=== PATIENT | female | born 1950 | race Caucasian/White ===

== ENCOUNTER 2016-12-09 15:31 | Outpatient (CLI) | payer MEDICARE, OTHER | END 2016-12-09 15:32 | disposition home or self-care (01) | DX: M54.5 Low back pain (principal); M51.36 Other intervertebral disc degeneration, lumbar region ==

== ENCOUNTER 2017-03-17 14:48 | Outpatient (CLI) | payer MEDICARE, OTHER ==
--- NOTE | 2017-03-21 18:40 | Mammography Report ---
DIGITAL SCREENING MAMMOGRAM: 03/17/2017 CLINICAL INDICATION: A 66-year-old for screening. COMPARISON: 05/2015, 10/2012, 04/2011, 03/2008, 03/2007. TECHNIQUE: Routine CC and MLO projections were obtained of the breasts. FINDINGS: The breasts again demonstrate heterogeneously dense fibroglandular parenchyma bilaterally. Coarse and punctate, typically benign calcifications are present. No suspicious masses, clustered microcalcifications, or regions of architectural distortion are identified. IMPRESSION: BENIGN FINDINGS. RECOMMENDATION: Routine annual screening unless otherwise clinically indicated. BI-RADS category 2, benign findings. STANDARD QUALIFYING STATEMENTS 1. This examination was reviewed with the aid of Computer-Aided Detection (CAD). 2. A negative or benign imaging report should not delay biopsy if clinically suspicious findings are present. Consider surgical consultation if warranted. More than 5% of cancers are not identified by i maging. 3. Dense breasts may obscure an underlying neoplasm. JOB #: [id number] EXT JOB #:[id number]
== END 2017-03-17 14:49 | disposition home or self-care (01) ==
LOC: DI.S 14:48
PROVIDERS: ATTEND Physician Assistant
DX: Z12.31 Encounter for screening mammogram for malignant neoplasm of breast (principal)
CPT/HCPCS: 77067

== ENCOUNTER 2017-09-05 19:34 | Outpatient (CLI) | payer MEDICARE, OTHER ==
--- NOTE | 2017-09-05 22:12 | Ultrasound Report ---
EXAM: BILATERAL LOWER EXTREMITY VENOUS ULTRASOUND EXAM DATE: 09/05/2017 09:44 PM. CLINICAL HISTORY: Varicose veins, pain in calf, superficial thrombophlebitis. COMPARISON: 10/11/2014. TECHNIQUE: Real-time sonographic vascular imaging was performed by the insurance representative through the lower extremities utilizing both color-flow and Doppler spectral analysis. Multiple installation service representative static i mages were saved for review. FINDINGS: Right: Common Femoral Vein (CFV): Normal. CFV-GSV Junction: Normal. Profunda Femoral Vein (PFV): Normal. Femoral Vein (FV) Prox: Normal. Femoral Vein (FV) Mid: Normal. Femoral Vein (FV) Dist: Normal. Popliteal Vein: Normal. Posterior Tibial Veins: Normal. Peroneal Veins: Normal. Left: Common Femoral Vein (CFV): Normal. CFV-GSV Junction: Normal. Profunda Femoral Vein (PFV): Normal. Femoral Vein (FV) Prox: Normal. Femoral Vein (FV) Mid: Normal. Femoral Vein (FV) Dist: Normal. Popliteal Vein: Normal. Posterior Tibial Veins: Normal. Peroneal Veins: Normal. Other: Anterior right knee fluid pocket measures approximately 5 x 1 x 3 cm and may be a joint effusi on. IMPRESSION: 1. No deep venous thrombosis seen in either leg. 2. Right knee possible joint effusion. [facility] Referring Provider Line: [phone] SITE ID: [id number]
== END 2017-09-05 19:35 | disposition home or self-care (01) ==
LOC: DI 19:34
PROVIDERS: ATTEND Physician Assistant
DX: I83.90 Asymptomatic varicose veins of unspecified lower extremity (principal); I80.9 Phlebitis and thrombophlebitis of unspecified site
CPT/HCPCS: 93970

== ENCOUNTER 2018-04-04 10:38 | Outpatient (CLI) | payer MEDICARE, OTHER ==
--- NOTE | 2018-04-06 15:14 | Mammography Report ---
Procedure Date: 04/04/2018 Accession Number: [id number] / [id number] Procedure: MGS - Screening Mammo Dig Bilat CPT Code: FULL RESULT: EXAM: Screening Mammo Dig Bilat DATE: 04/04/2018 10:53 AM CLINICAL HISTORY: 67-year-old for screening TECHNIQUE: Bilateral CC and MLO views were obtained. COMPARISON: 03/17/2017, 06/18/2015, 06/08/2015, 10/30/2012, 05/03/2011 FINDINGS: The breasts demonstrate scattered fibroglandular densities bilaterally. Coarse and punctate, typically benign calcifications are present. No suspicious masses, clustered microcalcifications, or regions of architectural distortion are identified. IMPRESSION: Benign findings RECOMMENDATION: Routine annual screening unless otherwise clinically indicated. BIRADS CATEGORY 2: Benign findings STANDARD QUALIFYING STATEMENTS: 1. This examination was reviewed with the aid of Computer-Aided Detection (CAD). 2. A negative or benign imaging report should not delay biopsy if clinically suspicious findings are present. Consider surgical consultation if warrented. More than 5% of cancers are not identified by imaging. 3. Dense breasts may obscure an underlying neoplasm.
== END 2018-04-04 10:39 | disposition home or self-care (01) ==
LOC: DI.S 10:38
PROVIDERS: ATTEND Physician Assistant
DX: Z12.31 Encounter for screening mammogram for malignant neoplasm of breast (principal)
CPT/HCPCS: 77067

== ENCOUNTER 2020-11-24 14:12 | Outpatient (CLI) | payer MEDICARE, OTHER ==
--- NOTE | 2020-11-25 14:35 | Mammography Report ---
BILATERAL DIGITAL SCREENING MAMMOGRAM 3D/2D: 11/24/2020 CLINICAL: Routine screening. Comparison is made to exams dated: 04/04/2018 mammogram, 03/17/2017 mammogram, 06/18/2015 mammogram, an d 10/30/2012 mammogram - [facility]. There are scattered fibroglandular elements in both breasts. There are benign vascular calcifications in both breasts. No significant masses, calcifications, or other findings are seen in either breast. There has been no significant interval change. IMPRESSION: BENIGN There is no mammographic evidence of malignancy. A 1 year screening mammogram is recommended. This exam was interpreted at Station ID: [id number]. NOTE: For mammograms, a report in lay terms will be sent to the patient. Approximately 15% of breast malignancies will not be visualized mammographically. In the management of a palpable breast mass, a negative mammogram must not discourage biopsy of a clinically suspicious lesion. Electronically Signed By: Hilton Thomas M.D. ddp/penrad:11/24/2020 16:52:25 ACR BI-RADS Category 2: Benign Finding(s) 3342F PARENCHYMAL PATTERN: (A) - The breast(s) demonstrate(s) scattered fibroglandular densities. BI-RADS CATEGORY: (2) - 2 RECOMMENDATION: (ANNUAL) - Recommend routine annual screening mammography. [id number] 1 year screening LATERALITY: (B)
== END 2020-11-24 14:13 | disposition home or self-care (01) ==
LOC: DI.S 14:12
DX: Z12.31 Encounter for screening mammogram for malignant neoplasm of breast (principal)

== ENCOUNTER 2021-06-03 11:18 | Outpatient (CLI) | payer MEDICARE, OTHER ==
--- NOTE | 2021-06-03 11:46 | XRAY Report ---
PROCEDURE: Hip w/Pelvis 1V RT INDICATIONS: Chronic right hip pain TECHNIQUE: AP pelvis with lateral view(s) of the right hip(s). COMPARISON: None FINDINGS: Left total hip arthroplasty. Moderate to severe osteoarthritis of the right hip characterized by joint space narrowing, subchondra l sclerosis and cystic change, and prominent marginal osteophytes. Mild lower lumbar spine degenerative changes. Sacroiliac joint spaces are maintained. Tubal ligation clips and pelvic phleboliths noted. No significant soft tissue abnormality otherwise. IMPRESSION: Moderate to severe right hip osteoarthritis. Reviewed by: Anatoly Rockwell MD on 06/03/2021 11:44 AM PDT Approved by: Anatoly Rockwell MD on 06/03/2021 11:44 AM PDT Station ID: [id number]
== END 2021-06-03 23:59 | disposition home or self-care (01) ==
LOC: DI.S 11:18
PROVIDERS: ATTEND Physician Assistant Medical
DX: M25.551 Pain in right hip (principal); G89.29 Other chronic pain; M16.11 Unilateral primary osteoarthritis, right hip

== ENCOUNTER 2021-07-05 08:14 | Outpatient (CLI) | payer MEDICARE, OTHER ==
[2021-07-05 14:17] LABS: BASOPHILS # (AUTO) 0.1 10^3/uL (0.0-0.1); BASOPHILS % (AUTO) 0.8 %; EOSINOPHILS # (AUTO) 0.2 10^3/uL (0.0-0.7); EOSINOPHILS % (AUTO) 3.2 %; HGB - HEMOGLOBIN 10.6 g/dL (12.0-16.0); LYMPHOCYTES % (AUTO) 14.5 %; MEAN CORPUSCULAR HEMOGLOBIN 25.1 pg (27.0-31.0); MEAN CORPUSCULAR HGB CONC 30.3 g/dL (32.0-36.0); MEAN CORPUSCULAR VOLUME 82.9 fL (81.0-99.0); MEAN PLATELET VOLUME 10.7 fL (7.9-10.8); MONOCYTES # (AUTO) 0.5 10^3/uL (0.0-1.0); MONOCYTES % (AUTO) 7.9 %; NEUTROPHILS # (AUTO) 4.8 10^3/uL (1.5-6.6); NEUTROPHILS % (AUTO) 73.4 %; PLT - PLATELET COUNT 285 10^3/uL (130-450); RED BLOOD COUNT 4.22 10^6/uL (4.20-5.40); RED CELL DISTRIBUTION WIDTH 15.6 % (12.0-15.0); WHITE BLOOD COUNT 6.6 x10^3/uL (4.8-10.8)
[2021-07-05 14:36] LABS: ALBUMIN 4.1 g/dL (3.2-5.5); ALBUMIN/GLOBULIN RATIO 1.2 (1.0-2.2); ALKALINE PHOSPHATASE 88 IU/L (42-121); ALT ALANINE AMINOTRANSFERASE 14 IU/L (10-60); AST ASPARTATE AMINOTRANSFERASE 21 IU/L (10-42); BILIRUBIN,TOTAL 0.8 mg/dL (0.2-1.0); BUN - BLOOD UREA NITROGEN 15 mg/dL (6-20); CALCIUM 9.3 mg/dL (8.5-10.3); CARBON DIOXIDE - CO2 27 mmol/L (21-32); CHLORIDE 107 mmol/L (101-111); CHOL/HDL RATIO 2.9 (<4.4); CHOLESTEROL 237 mg/dL; CREATININE 0.7 mg/dL (0.4-1.0); GFR - MDRD 82 (>89); GLUCOSE 91 mg/dL (70-100); HDL CHOLESTEROL 82 mg/dL; LDL CHOLESTEROL,CALCULATED 142 mg/dL; LDL/HDL RATIO 1.7 (<4.4); POTASSIUM 3.9 mmol/L (3.5-5.0); SODIUM 143 mmol/L (135-145); TOTAL PROTEIN 7.5 g/dL (6.7-8.2); TRIGLYCERIDES 66 mg/dL; VLDL CHOLESTEROL 13 mg/dL
[2021-07-05 14:42] LABS: THYROID STIMULATING HORMONE 2.18 uIU/mL (0.34-5.60)
== END 2021-07-05 08:15 | disposition home or self-care (01) ==
LOC: LAB.S 08:14
PROVIDERS: ATTEND Registered Nurse
DX: K21.9 Gastro-esophageal reflux disease without esophagitis (principal); M85.80 Other specified disorders of bone density and structure, unspecified site; K51.90 Ulcerative colitis, unspecified, without complications; E66.3 Overweight; I10 Essential (primary) hypertension
CPT/HCPCS: 36415; 80053; 80061; 83721; 84443; 85025

== ENCOUNTER 2021-07-15 11:00 | Outpatient (CLI) | payer MEDICARE, OTHER ==
--- NOTE | 2021-07-15 12:41 | XRAY Report ---
PROCEDURE: Hip w/Pelvis 2-3V RT INDICATIONS: RIGHT HIP ARTHRITIS TECHNIQUE: AP pelvis with lateral view(s) of the bilateral hip(s). COMPARISON: None. FINDINGS: Bones: No fractures or dislocations. Pelvic ring appears intact. No suspicious bony lesions. Left hip arthroplasty is present. No evidence of hardware fracture or periprosthetic lucency to suggest l oosening. Mild to moderate degenerative joint space narrowing is present on the right. Degenerative c hanges are present within the lower lumbar spine. Soft tissues: The visualized bowel gas pattern is normal. No suspicious soft tissue calcifications. IMPRESSION: Mild to moderate right hip arthritic change. Reviewed by: Geneva Zelaya MD on 07/15/2021 12:39 PM PDT Approved by: Geneva Zelaya MD on 07/15/2021 12:39 PM PDT Station ID: [id number]
== END 2021-07-15 23:59 | disposition home or self-care (01) ==
LOC: DI.N 11:00
PROVIDERS: ATTEND Orthopaedic Surgery
DX: M16.11 Unilateral primary osteoarthritis, right hip (principal)

== ENCOUNTER 2021-08-09 10:46 | Outpatient (CLI) | payer MEDICARE, OTHER ==
[2021-08-09 14:20] LABS: ABSOLUTE RETICS # AUTO 0.079 10^6/uL (0.020-0.110); BASOPHILS # (AUTO) 0.1 10^3/uL (0.0-0.1); BASOPHILS % (AUTO) 1.4 %; EOSINOPHILS # (AUTO) 0.2 10^3/uL (0.0-0.7); EOSINOPHILS % (AUTO) 3.7 %; HGB - HEMOGLOBIN 12.3 g/dL (12.0-16.0); LYMPHOCYTES % (AUTO) 17.2 %; MEAN CORPUSCULAR HEMOGLOBIN 26.2 pg (27.0-31.0); MEAN CORPUSCULAR HGB CONC 30.8 g/dL (32.0-36.0); MEAN CORPUSCULAR VOLUME 85.1 fL (81.0-99.0); MONOCYTES # (AUTO) 0.5 10^3/uL (0.0-1.0); MONOCYTES % (AUTO) 9.5 %; NEUTROPHILS # (AUTO) 3.9 10^3/uL (1.5-6.6); PLT - PLATELET COUNT 266 10^3/uL (130-450); RED CELL DISTRIBUTION WIDTH 21.2 % (12.0-15.0); RETICULOCYTE COUNT % (AUTO) 1.68 % (0.5-2.3); WHITE BLOOD COUNT 5.7 x10^3/uL (4.8-10.8)
[2021-08-09 15:03] LABS: % IRON SATURATION 21 % (20-50); IRON 95 ug/dL (28-170); TOTAL IRON BINDING CAPACITY 448 ug/dL (250-450); TRANSFERRIN 320 mg/dL (192-382)
[2021-08-09 15:10] LABS: FERRITIN 17.4 ng/mL (11.0-306.8)
[2021-08-09 15:59] LABS: FOLATE > 49.60 ng/mL (5.90 - >24.8)
== END 2021-08-09 10:47 | disposition home or self-care (01) ==
LOC: LAB.S 10:46
PROVIDERS: ATTEND Registered Nurse
DX: D64.9 Anemia, unspecified (principal)
CPT/HCPCS: 36415; 81599; 82607; 82728; 82746; 83020; 83540; 84466; 85014; 85018; 85025; 85041; 85045

== ENCOUNTER 2021-08-25 10:36 | Day surgery (SDC) | payer MEDICARE, OTHER ==
[~2021-08-25 10:36] MED LIST: ACETAMINOPHEN 500 MG TABLET PO ONE; CEFAZOLIN SODIUM IN 0.9 % NACL 2 GM/100 ML BAG IV ONE; DEXAMETHASONE 10 MG/ML VIAL ONE
[2021-08-25] MEDS ORDERED: ONDANSETRON 4 MG/2 ML VIAL IVP PRN ×2 (10:59→11:25)
[2021-08-25] MEDS ORDERED: SODIUM CHLORIDE FLUSH 0.9% 10 ML SYRINGE IVP PRN (10:59)
[2021-08-25] MEDS ORDERED: DOCUSATE SODIUM 100 MG CAPSULE PO PRN (10:59)
[2021-08-25] MEDS ORDERED: BUPIVACAINE 0.25% PF 30 ML VIAL ONE (11:12)
[2021-08-25] MEDS ORDERED: LACTATED RINGERS 1,000 ML IV ONE ×2 (11:17→15:07)
--- NOTE | 2021-08-25 11:22 | ANESTHESIA ---
Pre-Anesthesia VS, & Labs - Diagnosis right hip arthritis - Procedure right hip arthroplasty Vital Signs: Temp Pulse Resp BP Pulse Ox 36.3 C L 76 16 180/105 H 99 08/25/21 10:48 08/25/21 10:48 08/25/21 10:48 08/25/21 10:48 08/25/21 10:48 Height: 5 ft 5 in Weight (kg): 97.1 kg Body Mass Index: 35.6 BMI Classification: Obese - NPO >8 hours - Is Patient ?: No Home Medications and Allergies Home Medications: Ambulatory Orders Cholecalciferol [Vitamin D3] 25 mcg PO DAILY 08/17/21 Ferrous Sulfate 325 mg PO DAILY 08/17/21 Active Medications Acetaminophen (Acetaminophen 500 Mg Tablet) 1,000 mg PO Q6HR ZORAIDA Alcohol (Ethyl Alcohol 62% Swab Ampule) 1 amp CRISTINA BID ZORAIDA Aspirin (Aspirin Ec 81 Mg Tablet) 81 mg PO BID ZORAIDA Celecoxib (Celecoxib 100 Mg Capsule) 200 mg PO BID ZORAIDA Docusate Sodium (Docusate Sodium 100 Mg Capsule) 100 mg PO BID PRN PRN Reason: Constipation Cefazolin Sodium 2 gm/ Sodium (Chloride) 100 mls @ 200 mls/hr IV Q8HR ZORAIDA Stop: 08/25/21 22:29 Potassium Chloride/Sodium Chloride (Normal Saline 0.9% W/20 Meq Kcl) 1,000 mls @ 100 mls/hr IV .Q10H ZORAIDA Morphine Sulfate (Morphine 2 Mg/Ml Carpuject) 2 mg IVP Q2HR PRN PRN Reason: PAIN Ondansetron HCl (Ondansetron 4 Mg/2 Ml Vial) 4 mg IVP Q6HR PRN PRN Reason: Nausea / Vomiting Oxycodone HCl (Oxycodone 5 Mg Tablet) 5 mg PO Q6HR PRN PRN Reason: PAIN Sodium Chloride (Sodium Chloride Flush 0.9% 10 Ml Syringe) 10 ml IVP PRN PRN PRN Reason: NEEDED PER PROVIDER ORDERS Sodium Chloride (Sodium Chloride Flush 0.9% 10 Ml Syringe) 10 ml IVP 0100,0900,1700 [facility] Lisinopril 20 mg PO DAILY 10/03/14 Multivitamin [Multivitamins] 1 each PO DAILY 10/03/14 Cholecalciferol [Vitamin D3] 25 mcg PO DAILY 08/17/21 Ferrous Sulfate 325 mg PO DAILY 08/17/21 Allergies/Adverse Reactions: Allergies Allergy/AdvReac Type Severity Reaction Status Date / Time No Known Drug Allergies Allergy Verified 08/17/21 15:14 Anes History & Medical History - Anesthetic History Anesthesia Complications: reports: No previous complications - Medical History Cardiovascular: reports: Hypertension Pulmonary: reports: None Gastrointestinal: reports: GERD Urinary: reports: None Musculoskeletal: reports: Osteoarthritis Endocrine/Autoimmune: reports: None Skin: reports: None Smoking Status: Never smoker - Surgical History General: reports: Cholecystectomy, Appendectomy, Colonoscopy Gynecologic: reports: section, Tubal ligation Orthopedic: reports: Hip replacement, Spine surgery, Other Exam General: Alert, Oriented x3 Mouth Opening: Greater than 4 Fingerbreadths Neck Mobility: Normal Mallampati classification: II Thyromental Distance: greater than 6 cm Cardiovascular: Regular rate Plan Anesthesia Type: Spinal, Fascia Iliaca Block Consent for Procedure(s) Verified and Reviewed: Yes Code Status: Attempt Resuscitation ASA classification: 2-Mild systemic disease Is this case an emergency?: No
[2021-08-25] MEDS ORDERED: METOCLOPRAMIDE 10 MG/2 ML VIAL IVP PRN (11:25)
[2021-08-25] MEDS ORDERED: MORPHINE 2 MG/ML CARPUJECT IVP PRN (11:25)
[2021-08-25] MEDS ORDERED: fentaNYL 100 MCG/2 ML VIAL IVP PRN (11:25)
[2021-08-25] MEDS ORDERED: ATROPINE ABBOJECT 1 MG/10 ML SYRINGE IVP PRN (11:25)
[2021-08-25] MEDS ORDERED: HYDROmorphone 0.5 MG/0.5 ML SYRINGE IVP PRN (11:25)
[2021-08-25] MEDS ORDERED: NALOXONE 0.4 MG/ML VIAL IVP PRN (11:25)
[2021-08-25] MEDS ORDERED: ePHEDrine 50 MG/ML VIAL IVP PRN (11:25)
[2021-08-25] MEDS ORDERED: PROPOFOL 500 MG/50 ML 500 MG/50 ML VIAL ONE ×3 (11:33→13:26)
[2021-08-25] MEDS ORDERED: LIDOCAINE-MPF 2% 5 ML VIAL ONE (11:33)
[2021-08-25] MEDS ORDERED: MIDAZOLAM 2 MG/2 ML VIAL ONE (11:34)
[2021-08-25] MEDS ORDERED: BUPIVACAINE 0.5% PF 10 ML VIAL ONE (11:35)
[2021-08-25] MEDS ORDERED: LACTATED RINGERS 1,000 ML IV SCH (12:00)
[2021-08-25] MEDS ORDERED: ePHEDrine 50 MG/ML VIAL IVP ONE (12:12)
[2021-08-25] MEDS ORDERED: TRANEXAMIC ACID 1,000 MG/10 ML VIAL ONE ×2 (12:20→13:54)
[2021-08-25] MEDS ORDERED: VANCOMYCIN 1 GM VIAL MC ONE (13:21)
[2021-08-25] MEDS ORDERED: VANCOMYCIN 1 GM VIAL ONE (13:43)
[2021-08-25] MEDS ORDERED: PROPOFOL 200 MG/20 ML VIAL IVP ONE ×2 (14:15→14:33)
--- NOTE | 2021-08-25 14:28 | OPERATIVE REPORT ---
Operative Report - General Procedure Date: 08/25/21 Planned Procedure: Right total hip replacement Pre-Op Diagnosis: Osteoarthritis right hip Procedure Performed: Right total hip arthroplasty:[employer] #9 anthology standard offset femoral component, 54 mm R3 acetabular component with a single 6.5 mm acetabular screw, dual mobility liner to acetabulum +4 mm dual mobility femoral head, Press-fit components Post Op Diagnosis: Same as preoperative diagnosis - Procedure Note Primary Surgeon: Cal Rodrigues MD Secondary Surgeon: Janusz LONDONO Anesthesia Provider: Desirae Martini CRNA Anesthesia Technique: Regional block, Spinal Estimated Blood Loss (mL): 200 Indications: This is a 70-year-old with a history of bilateral hip osteoarthritis. She had a left total hip arthroplasty several years ago with favorable outcome. She has been treated nonoperatively for osteoarthritis of the right hip but has had progressive pain with activities of daily living and walking. She had decreased and painful motion to right hip, x-ray changes with complete loss of joint space to right hip consistent with advanced osteoarthritis right hip. She has been seen preoperatively by primary care and cardiology. She has had previous back surgery many years ago as well. Findings: She had complete loss of articular cartilage to the femoral head and acetabulum with eburnation of bone surfaces consistent with advanced osteoarthritis of the hip Complications: None - Other Other Information/Narrative: After satisfactory spinal anesthesia had been achieved, the patient was placed in a lateral decubitus position with the right hip facing superiorly. She was secured in the lateral decubitus position using a pegboard with 2 post securing the torso and 2 posts securing the pelvis. The right hip and right lower extremity were prepped and draped in a sterile manner in the usual fashion. A timeout procedure was performed by the entire operating room team and all were in agreement. A longitudinal incision was made about the lateral right hip beginning at the vastus lateralis ridge of the proximal femur and extending it proximally approximately 3 fingerbreadths above the trochanter. The subcutaneous tissue and fascia renata were split in line with the incision. The anterior one third of the gluteus medius was incised at the Trochanteric junction. The gluteus medius was retracted medially. The hip capsule was exposed and was split in a T-shaped fashion. Part of the anterior hip capsule was excised. The femoral head was dislocated Anteriorly with flexion, adduction and external rotation. An osteotomy was done to the femoral neck using a osteotomy guide. Retractors were placed behind the femoral neck to protect the soft tissues from the oscillating saw. The proximal femur was retracted. 2 acetabular retractors were placed one anteriorly directly against bone to reduce any soft tissue impingement to femoral nerve. The second retractor was placed more posteriorly directly against bone and preventing any impingement against sciatic nerve. The acetabulum was prepared with a large curette. Medialization of the acetabulum was performed with a small acetabular reamer and then widening was done up to a 53 mm reamer the final reamers were placed in approximately 20 degrees anteversion and 45 degrees of abduction. A trial acetabular component was inserted, 53 mm and this fit well. A permanent 54 mm R3 acetabular 3-hole component was then impacted in 40 degrees of abduction and approximately 20 degrees of anteversion. This had good fixation to push pull and rotation. A single 25mm superior acetabular screw was inserted. The stability of the acetabular cup was very good. A Dual mobility Oxinium acetabular liner was inse rted into the cup. The femoral canal was opened with a box osteotome, starting reamer and then a short broach. Broaching was carried out to a #9. Calcar reaming was performed. Good fit and stability to the #4 stem was achieved. Trial reduction was performed. Hip motion was very good and the hip was stable to dislocation maneuvers. The trial components were removed. A permanent acetabular liner was impacted into the acetabular cup. The #9 anthology femoral stem was impacted and fully seated. The Dual mobility femoral head was impacted on the femoral trunnion. There was good stability to push pull and rotation. The hip was reduced, had good leg length tension and good stability with dislocation maneuvers. 3-minute lavage with dilute Betadine was performed. The hip abductors were repaired at the Trochanteric junction with Arthrex fiber tack suture with 4 needles. The fascia renata was closed with #1Strata fix. The subcutaneous tissue was closed with 2-0 Strata fixl. The skin was closed with a 3-0 Monocryl subcuticular closure and Dermabond. He tolerated the procedure well. A physician construction assistant was utilized during the procedure to provide retraction and protection of neurovascular structures as well as to facilitate dislocation and reduction of the hip joint.She received 2 g of Ancef intravenously and a gram of tranexamic acid intravenously
[2021-08-25] MEDS ORDERED: SODIUM CHLORIDE 0.9% 10 ML VIAL IVP ONE (14:49)
[2021-08-25] MEDS ORDERED: ROPIVACAINE 0.5% PF 20 ML AMPULE ONE (14:49)
--- NOTE | 2021-08-25 15:35 | XRAY Report ---
PROCEDURE: Pelvis 1 View INDICATIONS: POST UP RIGHT TOTAL HIP TECHNIQUE: AP view(s) of the pelvis acquired. COMPARISON: July 15, 2021. FINDINGS: The patient is rotated. BONES/JOINTS: No acute, displaced fracture. Interval placement of a right hip arthroplasty without ev idence of hardware compromise. The pubic symphysis is not well seen. The right sacroiliac joint is patent. The prosthetic femoral he ads are normally seated within the prosthetic acetabuli. SOFT TISSUES: Subcutaneous emphysema about the right hip, compatible with recent intervention. IMPRESSION: 1.Expected post surgical change. Reviewed by: Jameson Jones MD on 08/25/2021 3:34 PM PDT Approved by: Jameson Jones MD on 08/25/2021 3:34 PM PDT Station ID: [id number]
--- NOTE | 2021-08-25 16:34 | CONSULTATION NOTE ---
Referring Provider Name of Referring Provider:: Dr Rodrigues Consult Date: 08/25/21 Chief Complaint - Chief Complaint Chief Complaint: Hip surgery History of Present Illness - Admitted From Admitted From:: PACU - History Obtained From History obtained from: Patient and chart review - History of Present Illness HPI Comment/Other: This is a 70-year-old white female with a history of hypertension on lisinopril and also on vitamin D and iron replacement therapy. She had prior back surgery and left hip replacement which was successful. She also has right hip arthritis and developed significant worsening and was to have elective right hip surgery. She had clearance by her PCP. The orthopedist note says she also had clearance by cardiology but I cannot find this. She presented for elective surgery today and completed right hip surgery and is now in recovery and admitted to her room in the hospital. Patient currently denies any significant sx. She is compliant with her usual medications. History - Past Medical History Cardiovascular: reports: Hypertension Respiratory: reports: None Endocrine/Autoimmune: reports: None GI: reports: GERD : reports: None HEENT: reports: Chronic vision loss, Chronic hearing loss Psych: reports: None Musculoskeletal: reports: Osteoarthritis Derm: reports: None MRSA Hx?: No - Past Surgical History General: reports: Cholecystectomy, Appendectomy, Colonoscopy Ortho: reports: Hip replacement, Spine surgery, Other /RESIDENT ASSOCIATE: reports: section, Tubal ligation - Family & Social History Living arrangement: At home - Substance History Use: Uses substance without health or social issues: NONE Meds/Allgy - Home Medications Home Medications: Ambulatory Orders Medication Instructions Recorded Confirmed Lisinopril 20 mg PO DAILY 10/03/14 08/25/21 Multivitamin [Multivitamins] 1 each PO DAILY 10/03/14 08/25/21 Cholecalciferol [Vitamin D3] 25 mcg PO DAILY 08/17/21 08/25/21 Ferrous Sulfate 325 mg PO DAILY 08/17/21 08/25/21 - Allergies Allergies/Adverse Reactions: Allergies Allergy/AdvReac Type Severity Reaction Status Date / Time No Known Drug Allergies Allergy Verified 08/17/21 15:14 Review of Systems - All Other Systems All Other Systems: reports: Reviewed and negative Exam - Vital Signs Vital Signs: Vital Signs x48h Temp Pulse Pulse Resp BP BP Pulse Ox 08/25/21 16:14 20 142/69 H 100 08/25/21 15:59 72 20 148/69 H 100 08/25/21 15:30 36.1 C L 66 13 127/79 100 08/25/21 15:20 36.1 C L 62 12 127/86 H 100 08/25/21 15:10 36.1 C L 62 11 L 121/95 H 98 08/25/21 15:05 36.0 C L 61 16 120/60 99 08/25/21 15:00 36.0 C L 65 16 111/58 L 99 08/25/21 14:55 36.0 C L 65 16 119/67 100 08/25/21 11:00 35.5 C L 68 20 142/69 H 100 08/25/21 10:48 36.3 C L 76 16 180/105 H 99 Conclusion/Plan - Problem List (1) HTN (hypertension) Conclusion/Plan: Continue with her usual lisinopril dose while here. Parameters for when to not give lisinopril are ordered. Her diet should be a low-sodium diet (2) Status post hip replacement Conclusion/Plan: Plan for PT to see this patient in discharge tomorrow with pain medication and DVT prophylaxis as per the orthopedic surgeon. Thank you for the allowing the Hospitalist team to participate in the care of this patient. Qualifiers: Laterality: right Qualified Code(s): Z96.641 - Presence of right artificial hip joint
[2021-08-25] MEDS: NS W/20 MEQ KCL 1,000 ML IV SCH (16:39)
[2021-08-25] MEDS: ACETAMINOPHEN 500 MG TABLET PO SCH ×2 (16:58→23:11)
[2021-08-25] MEDS: MORPHINE 2 MG/ML CARPUJECT IVP PRN ×2 (16:58→20:05)
[2021-08-25] MEDS: SODIUM CHLORIDE FLUSH 0.9% 10 ML SYRINGE IVP SCH ×2 (16:59→22:52)
--- NOTE | 2021-08-25 18:08 | ANESTHESIA POST OP EVALUATION ---
Anesthesia Post Eval - Post Anesthesia Eval Vitals: Last Vital Signs Temp 34.8 C L 08/25/21 16:29 Pulse 76 08/25/21 16:44 Resp 16 08/25/21 16:44 BP 145/75 H 08/25/21 16:44 Pulse Ox 100 08/25/21 16:44 CV Function Including HR & BP: Stable Pain Control: Satisfactory Nausea & Vomiting: Negative Mental Status: Baseline Respiratory Status: Airway Patent Hydration Status: Satisfactory Anesthesia Complications: None
[2021-08-25] MEDS: oxyCODONE 5 MG TABLET PO PRN (18:36)
[2021-08-25] MEDS: ASPIRIN EC 81 MG TABLET PO SCH (20:05)
[2021-08-25] MEDS: CELECOXIB 100 MG CAPSULE PO SCH (20:05)
[2021-08-25] MEDS: ceFAZolin 2 GM in SODIUM CHLORIDE 0.9% 100ML 100 ML IV SCH (20:05)
[2021-08-25] MEDS: ethyl alcohoL 62% SWAB AMPULE NAS SCH (20:07)
[2021-08-26] MEDS: NS W/20 MEQ KCL 1,000 ML IV SCH (02:15)
[2021-08-26] MEDS: oxyCODONE 5 MG TABLET PO PRN ×2 (02:15→08:21)
[2021-08-26] MEDS: ceFAZolin 2 GM in SODIUM CHLORIDE 0.9% 100ML 100 ML IV SCH (03:45)
[2021-08-26] MEDS: ACETAMINOPHEN 500 MG TABLET PO SCH ×2 (05:42→11:11)
[2021-08-26] MEDS ORDERED: MULTIVITAMIN TABLET PO SCH (08:00)
[2021-08-26] MEDS: ethyl alcohoL 62% SWAB AMPULE NAS SCH (08:20)
[2021-08-26] MEDS: ASPIRIN EC 81 MG TABLET PO SCH (08:21)
[2021-08-26] MEDS: CELECOXIB 100 MG CAPSULE PO SCH (08:21)
[2021-08-26] MEDS: SODIUM CHLORIDE FLUSH 0.9% 10 ML SYRINGE IVP SCH (08:22)
[2021-08-26] MEDS ORDERED: NS W/20 MEQ KCL 1,000 ML IV SCH (08:26)
--- NOTE | 2021-08-26 08:46 | PROVIDER PROGRESS NOTE ---
Subjective - General Procedure Date: 08/25/21 Post Op Days: 1 Procedure Performed: Right RUPERTO - Review of Systems Wound/Incisions: positive: Healing well, Dressing dry and intact General: negative: Fever, Weakness Pulmonary: negative: Shortness of breath Cardiovascular: negative: Chest pain Gastrointestinal: negative: Nausea, Vomiting Musculoskeletal: positive: Joint pain All Other Systems: positive: Reviewed and negative - Other Other Information/Narrative: Patient is a 70-year-old female who is postop day 1 a right RUPERTO performed by Dr Cal Rodrigues at [facility] on 08/25/2021. Patient's medical history includes mild chronic anemia, GERD, hypertension on lisinopril helpful. Patient has documented allergy to codeine but denies significant effect. Patient shows no signs or symptoms of infection her pain is well controlled she is getting PT OT and is comanaged by the hospitalist.She is weightbearing as tolerated with a front wheeled walker Objective - Patient Data Vital Signs: Vital Signs x48h Temp Pulse Resp BP Pulse Ox 08/26/21 08:20 36.7 C 79 16 153/84 H 97 08/26/21 03:46 36.7 C 84 18 155/78 H 96 Weight: Weight 08/24/21 08/25/21 08/26/21 23:59 23:59 23:59 Weight (kg) 97.1 kg Intake & Output: Intake and Output Totals x24h 08/24/21 08/25/21 08/26/21 23:59 23:59 23:59 Intake Total 400 1560 Output Total 1250 600 Balance -850 960 - Imaging Results Radiology Imaging: positive: EMP read indepedently (I have independently visualized postop x-rays of the pelvis that show previous left hip total arthroplasty and the more recent right total hip arthroplasty performed yesterday which shows good anatomical alignment no apparent hardware loosening.) - Current Medications Current Medications: Current Medications Generic Name Dose Route Start Last Admin Trade Name Freq PRN Reason Stop Dose Admin Acetaminophen 1,000 mg 08/25/21 18:00 08/26/21 05:42 Acetaminophen 500 Mg Tablet PO 1,000 mg Q6HR ZORAIDA Administration Alcohol 1 amp 08/25/21 21:00 08/26/21 08:20 Ethyl Alcohol 62% Swab Ampule CRISTINA 1 amp BID ZORAIDA Administration Aspirin 81 mg 08/25/21 21:00 08/26/21 08:21 Aspirin Ec 81 Mg Tablet PO 81 mg BID ZORAIDA Administration Celecoxib 200 mg 08/25/21 21:00 08/26/21 08:21 Celecoxib 100 Mg Capsule PO 200 mg BID ZORAIDA Administration Cholecalciferol 25 mcg 08/26/21 09:00 08/26/21 08:21 Cholecalciferol 25 Mcg Tablet PO 25 mcg DAILY ZORAIDA Administration Lisinopril 20 mg 08/26/21 09:00 08/26/21 08:21 Lisinopril 20 Mg Tablet PO 20 mg DAILY ZORAIDA Administration Morphine Sulfate 2 mg 08/25/21 10:59 08/25/21 20:05 Morphine 2 Mg/Ml Carpuject IVP 2 mg Q2HR PRN Administration PAIN Multivitamins 1 tab 08/26/21 08:00 08/26/21 08:21 Multivitamin Tablet PO 1 tab DAILYWM ZORAIDA Administration Oxycodone HCl 5 mg 08/25/21 10:59 08/26/21 08:21 Oxycodone 5 Mg Tablet PO 5 mg Q6HR PRN Administration PAIN Sodium Chloride 10 ml 08/25/21 17:00 08/26/21 08:22 Sodium Chloride Flush 0.9% 10 Ml Syringe IVP 10 ml 0100,0900,1700 ZORAIDA Administration - Physical Exam Wound/Incisions: positive: Dressing dry and intact General Appearance: positive: No acute distress Respiratory: positive: No respiratory distress Extremities: positive: Joint swelling Neurologic/Psychiatric: positive: Oriented x3 ABX Reporting Has patient been on IV antibiotics over the past 48 hours?: Yes Impression/Plan - Problem List Problem List: Patient is a 70-year-old female with medical history includes mild chronic anemia, GERD, hypertension on lisinopril who is postop day 1 right RUPERTO performed by Dr Cal Earl [facility] [place]. Patient shows no signs or symptoms of infection, pain is well controlled she is continuing to be weightbearing as tolerated in front wheeled walker. Patient to receive more sessions of PT OT today and early afternoon and she is cleared to be discharged home from an orthopedic surgical standpoint.Patient is comanaged by the hospitalist.
--- NOTE | 2021-08-26 08:58 | Discharge Plan ---
Discharge Plan Problem Reviewed?: Yes Disposition: Home, Self Care Condition: Good Activity Restrictions: Wt Bearing as Tolerated (WBAT in front wheel walker) Shower Restrictions: Yes (Use a shower chair to prevent falls) Driving Restrictions: Yes (Do not drive until cleared by surgeon) Assistance Devices: Walker Weight Bearing: Partial Weight Additional Instructions or Follow Up instructions: You had a right total hip replacement done by Dr Cal Rodrigues at [facility] yesterday on 08/25/2021. You have been instructed on limb precautions do not cross your operative right leg across midline or the left leg, avoid excessive internal rotation of the leg and avoid Brain your knees above your pelvis especially in low chairs. You were given his precautions for 6 weeks. You also to take an 81 mg aspirin twice a day for 6 weeks for blood clot prevention. Use a front wheeled walker to ambulate. Regarding your postop medication refer to the home pain medication schedule received during joint camp. In summation you will be taking scheduled Tramadol and Tylenol Anesthesia name regardless of painand use oxycodone for breakthrough pain. You will have a postop follow-up next week at the [facility] No Smoking: If you smoke, Please STOP! Call for help. Follow-up with: Sandy Guzman ARNP [Primary Care Provider] -
[2021-08-26] MEDS ORDERED: lisinopriL 20 MG TABLET PO SCH (09:00)
[2021-08-26] MEDS ORDERED: CHOLECALCIFEROL 25 MCG TABLET PO SCH (09:00)
[2021-08-26] MEDS: MORPHINE 2 MG/ML CARPUJECT IVP PRN (11:11)
[2021-08-26 15:04] VITALS: BP 148/85
== END 2021-08-26 14:08 | disposition home or self-care (01) ==
LOC: SDS 10:36 → MS2 15:43 → SDS 08-26 14:08
PROVIDERS: ATTEND Orthopaedic Surgery
DX: M16.11 Unilateral primary osteoarthritis, right hip (principal); D64.9 Anemia, unspecified; I10 Essential (primary) hypertension; K21.9 Gastro-esophageal reflux disease without esophagitis; E66.9 Obesity, unspecified; Z68.35 Body mass index [BMI] 35.0-35.9, adult
CPT/HCPCS: 27130; 72170; A9270; J0690; J3370; J7120

== ENCOUNTER 2021-09-11 08:00 | Outpatient (CLI) | payer MEDICARE, OTHER | END 2021-09-11 23:59 | disposition home or self-care (01) | LOC: LAB.S 08:00 | PROVIDERS: ATTEND Physician Assistant Medical | DX: T81.89XA Other complications of procedures, not elsewhere classified, initial encounter (principal) | CPT/HCPCS: 87070; 87077; 87181; 87205 ==

== ENCOUNTER 2021-10-05 07:20 | Outpatient (CLI) | payer MEDICARE, OTHER ==
--- NOTE | 2021-10-05 15:06 | XRAY Report ---
PROCEDURE: Hip w/Pelvis 1V RT INDICATIONS: R HIP TOTAL ARTHROPLASTY TECHNIQUE: AP pelvis with AP and lateral views of the right hip. COMPARISON: Pelvic radiographs 08/25/2021. A right hip radiographs 07/15/2021 FINDINGS: Bones: Postsurgical changes are seen from bilateral hip arthroplasties. The hardware is intact and st able in positioning. Metallic clips are seen projecting over the pelvis. No acute fracture is seen. Soft tissues: The visualized bowel gas pattern is normal. No suspicious soft tissue calcifications. IMPRESSION: Stable appearance of bilateral hip arthroplasties. Reviewed by: William Biswas MD on 10/05/2021 3:05 PM PST Approved by: William Biswas MD on 10/05/2021 3:05 PM PST Station ID: [id number]
--- NOTE | 2021-10-05 16:32 | XRAY Report ---
PROCEDURE: Knee 4 View RT INDICATIONS: R KNEE PX TECHNIQUE: 4 views of the right knee were acquired along with a single view of the left knee. COMPARISON: None. FINDINGS: Bones: Postsurgical changes are seen from a right total knee arthroplasty. The hardware is intact wit h expected alignment. Mild degenerative changes are seen in the contralateral left medial and lateral femorotibial compartments. Soft tissues: No joint effusion. No suspicious soft tissue calcifications. IMPRESSION: Postsurgical changes from right knee arthroplasty. No acute osseous abnormality. Reviewed by: William Biswas MD on 10/05/2021 4:31 PM PST Approved by: William Biswas MD on 10/05/2021 4:31 PM PST Station ID: [id number]
== END 2021-10-05 23:59 | disposition home or self-care (01) ==
LOC: DI.N 07:20
PROVIDERS: ATTEND Physician Assistant
DX: M25.561 Pain in right knee (principal); Z96.643 Presence of artificial hip joint, bilateral; Z96.651 Presence of right artificial knee joint

== ENCOUNTER 2021-11-12 09:51 | Outpatient (CLI) | payer MEDICARE, OTHER ==
--- NOTE | 2021-11-12 20:47 | DEXA Report ---
PROCEDURE: Dexa Spine and/or Hip INDICATIONS: POST MENOPAUSAL TECHNIQUE: Dual energy x-ray absorptiometry (DXA) was performed on a [facility]. Regions measur ed are the AP Spine and left forearm due to presence of bilateral hip arthroplasty hardware. COMPARISON: None. FINDINGS: Lumbar Spine: Bone Mineral Density 1.151 g/cm/cm,T scores of -0.2. Left forearm: Bone Mineral Density 0.756 g/cm/cm, T score -1.4. (T score greater or equal to -1.0: NORMAL) (T score from -1.1 to -2.4: OSTEOPENIA) (T score less than or equal to -2.5 to: OSTEOPOROSIS) Impression: Osteopenia. Patients with diagnosis of osteoporosis or osteopenia should have regular bone mineral density assess ment. For those eligible for Medicare, routine testing is allowed once every 2 years. Testing frequ ency can be increased for patients who have rapidly progressing disease or for those who are receivin g medical therapy to restore bone mass. Reviewed by: Eddie Ferguson MD on 11/12/2021 8:46 PM PST Approved by: Eddie Ferguson MD on 11/12/2021 8:46 PM PST Station ID: [id number]
== END 2021-11-12 09:52 | disposition home or self-care (01) ==
LOC: DI 09:51
PROVIDERS: ATTEND Registered Nurse
DX: Z78.0 Asymptomatic menopausal state (principal); Z96.643 Presence of artificial hip joint, bilateral; M85.832 Other specified disorders of bone density and structure, left forearm

== ENCOUNTER 2022-03-08 10:27 | Outpatient (CLI) | payer MEDICARE, OTHER | END 2022-03-08 10:28 | disposition short-term general hospital (02) | LOC: EMS 10:27 | DX: R23.1 Pallor (principal); R61 Generalized hyperhidrosis; R06.00 Dyspnea, unspecified; I48.91 Unspecified atrial fibrillation | CPT/HCPCS: A0425; A0427 ==

== ENCOUNTER 2022-04-12 09:45 | Emergency (ER) | payer MEDICARE, OTHER ==
--- NOTE | 2022-04-12 10:09 | ED Physician Documentation ---
PD HPI CHEST PAIN - Stated complaint Stated Complaint: VARYING PULSE - Chief complaint Chief Complaint: Cardiac - History obtained from History obtained from: Patient - History of Present Illness Timing - onset: Today (onset this morning after getting out of bed. Onset of feeling fast heart rate with some lightheaded. No chest pain. [place] okay last night/yesterday. Has had similar with fast atrial fib recent past and was cardioverted in ER at [facility].) Timing - onset during: Light activity (she was in bed resting about to get up and the phone rang, startling her, and she felt the onset of fast heart rate/irregular.) Timing - duration: Hours (couple of hours now.) Timing - details: Abrupt onset, Still present Quality: Pressure (fluttering feeling.). No: Tightness, Sharp Location: Substernal Associated symptoms: Feeling faint / dizzy (mild initially, not currently), Palpitations. No: Shortness of air, Diaphoresis, Nausea, General Weakness Similar symptoms before: Diagnosis (atrial fib with RVR initial episode just month or so ago, cardioverted and had ECHO. Is scheduled for stress test tomorrow and then to start on antiarrhythmic.) Review of Systems Constitutional: denies: Fever, Chills Nose: denies: Rhinorrhea / runny nose, Congestion Throat: denies: Sore throat Cardiac: reports: Palpitations. 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, Tubal ligation - Present Medications Home Medications: Ambulatory Orders Medication Instructions Recorded Confirmed Lisinopril 20 mg PO DAILY 10/03/14 04/12/22 Multivitamin [Multivitamins] 1 each PO DAILY 10/03/14 04/12/22 Cholecalciferol [Vitamin D3] 25 mcg PO DAILY 08/17/21 04/12/22 Ferrous Sulfate 325 mg PO DAILY 08/17/21 04/12/22 Apixaban [Eliquis] 5 mg ORAL BID 04/12/22 04/12/22 - Allergies Allergies/Adverse Reactions: Allergies Allergy/AdvReac Type Severity Reaction Status Date / Time No Known Drug Allergies Allergy Verified 08/17/21 15:14 - Social History Does the pt smoke?: No Smoking Status: Never smoker Does the pt drink ETOH?: No Does the pt have substance abuse?: No - Immunizations Immunizations are current?: Yes PD ED PE NORMAL - Vitals Vital signs reviewed: Yes - General General: Alert and oriented X 3, No acute distress, Well developed/nourished - Neck Neck: Supple, no meningeal sign, No adenopathy - Cardiac Cardiac: No: RRR (fast rate about 160.) - Respiratory Respiratory: No respiratory distress, Clear bilaterally - Abdomen Abdomen: Soft, Non tender - Derm Derm: Normal color, Warm and dry - Extremities Extremities: No tenderness to palpate, Normal ROM s pain, No edema, No calf tenderness / cord - Neuro Neuro: Alert and oriented X 3, No motor deficit, Normal speech Results - Vitals Vitals: Vital Signs - 24 hr 04/12/22 04/12/22 04/12/22 09:51 10:40 10:45 Temperature 36.7 C Heart Rate 125 H 145 H 121 H Respiratory 18 20 15 Rate Blood Pressure 133/117 H 107/81 H 107/81 H O2 Saturation 98 98 95 04/12/22 04/12/22 04/12/22 10:55 11:00 11:30 Temperature Heart Rate 124 H 108 H 125 H Respiratory 19 12 15 Rate Blood Pressure 119/84 H 128/92 H 131/89 H O2 Saturation 98 97 97 04/12/22 04/12/22 04/12/22 12:00 12:20 12:30 Temperature Heart Rate 122 H 98 59 L Respiratory 11 L 16 15 Rate Blood Pressure 130/97 H 144/109 H 155/85 H O2 Saturation 99 98 98 04/12/22 04/12/22 04/12/22 12:57 13:06 13:30 Temperature Heart Rate 66 122 H 63 Respiratory 16 20 18 Rate Blood Pressure 122/74 145/74 H O2 Saturation 100 99 Oxygen O2 Source [With Activity] Room air O2 Source [Without Activity] Room air O2 Source Room air - EKG (time done) 9:59 Rate: Rate (enter#) (161) Rhythm: Atrial fibrillation [place]: LAD Intervals: Wide QRS, LBBB Ischemia: Non specific changes - Labs Labs: Laboratory Tests 04/12/22 04/12/22 04/12/22 10:03 10:21 10:21 WBC 6.0 RBC 4.80 Hgb 11.9 L Hct 37.8 MCV 78.8 L MCH 24.8 L MCHC 31.5 L RDW 17.7 H Plt Count 275 MPV 9.9 Neut # (Auto) 3.9 Lymph # (Auto) 1.2 L [place] # (Auto) 0.6 Eos # (Auto) 0.2 Baso # (Auto) 0.1 Absolute Nucleated RBC 0.00 Nucleated RBC % 0.0 Sodium 140 Potassium 3.9 Chloride 106 Carbon Dioxide 24 Anion Gap 10.0 BUN 17 Creatinine 0.7 Estimated GFR (MDRD) 82 L Glucose 110 H Calcium 9.3 Magnesium 1.8 Total Bilirubin 0.7 AST 22 ALT 17 Alkaline Phosphatase 79 Troponin I High Sens 21.7 H* B-Natriuretic Peptide Total Protein 7.4 Albumin 3.9 Globulin 3.5 Albumin/Globulin Ratio 1.1 Lipase 24 04/12/22 10:21 WBC RBC Hgb Hct MCV MCH MCHC RDW Plt Count MPV Neut # (Auto) Lymph # (Auto) [place] # (Auto) Eos # (Auto) Baso # (Auto) Absolute Nucleated RBC Nucleated RBC % Sodium Potassium Chloride Carbon Dioxide Anion Gap BUN Creatinine Estimated GFR (MDRD) Glucose Calcium Magnesium Total Bilirubin AST ALT Alkaline Phosphatase Troponin I High Sens B-Natriuretic Peptide 260 H Total Protein Albumin Globulin Albumin/Globulin Ratio Lipase - Rads (name of study) chest xray Radiology: Prelim report reviewed (no CHF nor acute changes. ), See rad report Procedures - Cardioversion 1 Indication: Tachyarrhythmia Risks, benefits, alternatives explained to: Pt Prep: IV, O2, groundwater monitoring technician, Pulse ox, Airway equip CS via: Pads, AP approach Sync: Biphasic, 100j Performed by: ED MD PD MEDICAL DECISION MAKING - ED course Complexity details: considered differential (paraosymal atrial fib with some response to added Metoprolol. discussed with patient and shared decision for cardioversion. ), d/w patient, d/w senior sustainability consultant (Dr. Bills, Cardiology, for patient to come for stress test as planned tomorrow. ) Departure - Departure Disposition: Home, Self Care Clinical Impression: Paroxysmal atrial fibrillation with rapid ventricular response Condition: Stable Record reviewed to determine appropriate education?: Yes Instructions: ED Afib, ED Cardioversion Electrical Follow-Up: Francis Bills MD [Provider Admit Priv/Credential] - Comments: I talked with Dr. Bills who said he would like you to still show up for your stress test tomorrow so that they can assess your stress ability and be able to start new antiarrhythmic medicines. For now continue usual medications. Stay well-hydrated. Return if recurrent symptoms. Discharge Date/Time: 04/12/22 13:34
[2022-04-12 10:25] LABS: BASOPHILS # (AUTO) 0.1 10^3/uL (0.0-0.1); BASOPHILS % (AUTO) 1.3 %; EOSINOPHILS # (AUTO) 0.2 10^3/uL (0.0-0.7); EOSINOPHILS % (AUTO) 3.5 %; HCT - HEMATOCRIT 37.8 % (37.0-47.0); HGB - HEMOGLOBIN 11.9 g/dL (12.0-16.0); LYMPHOCYTES # (AUTO) 1.2 10^3/uL (1.5-3.5); LYMPHOCYTES % (AUTO) 19.8 %; MEAN CORPUSCULAR HEMOGLOBIN 24.8 pg (27.0-31.0); MEAN CORPUSCULAR HGB CONC 31.5 g/dL (32.0-36.0); MEAN CORPUSCULAR VOLUME 78.8 fL (81.0-99.0); MEAN PLATELET VOLUME 9.9 fL (7.9-10.8); MONOCYTES # (AUTO) 0.6 10^3/uL (0.0-1.0); MONOCYTES % (AUTO) 9.7 %; NEUTROPHILS # (AUTO) 3.9 10^3/uL (1.5-6.6); NEUTROPHILS % (AUTO) 65.4 %; PLT - PLATELET COUNT 275 10^3/uL (130-450); RED CELL DISTRIBUTION WIDTH 17.7 % (12.0-15.0)
[2022-04-12] MEDS ORDERED: METOPROLOL 5 MG/5 ML VIAL IVP STA ×2 (10:34→11:19)
--- NOTE | 2022-04-12 10:46 | XRAY Report ---
PROCEDURE: Chest 1 View X-Ray INDICATIONS: Chest pain TECHNIQUE: One view of the chest was acquired. COMPARISON: None. FINDINGS: Surgical changes and devices: None. Lungs and pleura: No pleural effusions or pneumothorax. Lungs are clear. Mediastinum: Mediastinal contours appear normal. Heart size is normal. Bones and chest wall: No suspicious bony lesions. Overlying soft tissues appear unremarkable. IMPRESSION: No acute cardiopulmonary process demonstrated radiographically. Reviewed by: Anatoly Rockwell MD on 04/12/2022 10:45 AM PDT Approved by: Anatoly Rockwell MD on 04/12/2022 10:45 AM PDT Station ID: [id number]
[2022-04-12 10:53] LABS: ALBUMIN 3.9 g/dL (3.2-5.5); ALBUMIN/GLOBULIN RATIO 1.1 (1.0-2.2); BILIRUBIN,TOTAL 0.7 mg/dL (0.2-1.0); CALCIUM 9.3 mg/dL (8.5-10.3); CREATININE 0.7 mg/dL (0.4-1.0); MAGNESIUM 1.8 mg/dL (1.7-2.8); POTASSIUM 3.9 mmol/L (3.5-5.0); TOTAL PROTEIN 7.4 g/dL (6.7-8.2)
[2022-04-12] MEDS ORDERED: PROPOFOL 200 MG/20 ML VIAL IVP STA (12:14)
[2022-04-12 13:31] VITALS: BP 145/74
--- OUTSIDE RECORDS SUMMARY | 2022-04-14 16:05 | EXTERNAL MEDICAL SUMMARY RPT | Continuity of Care Document ---
:1950 Author Organization [place] Address [address] [place] [address] Phone Allergies No information. Encounters No information. Functional Status No information. Immunizations No information. Medications date description facility +0000 aspirin [facility] [place] [phone]+0000 aspirin [facility] [place] [phone]+0000 citalopram [facility] [place] [phone]+0000 citalopram [facility] [place] [phone]+0000 citalopram [facility] [place] [phone]+0000 citalopram [facility] [place] [phone]+0000 metoprolol tartrate [facility] [place] [facility] [place] [phone]+0000 multivitamin [facility] [place] [phone]+0000 aspirin [facility] [place] [phone]+0000 aspirin [facility] [place] [phone]+0000 metoprolol tartrate [facility] [place] Problems No information. Procedures date description facility [id number] EKG Office Complete [facility] [place] [facility] [place] Results/Labs No information. Social History date description facility [id number]+0000 Never smoker [facility] [place] [phone]+0000 Never smoker [facility] [place] Vital Signs date measurement value units [id number]+0000 BMI BMI 33.53 kg/m2 91150628980733+0000 BP_diastolic BP_diastolic 50 mm[H g] 66360399133425+0000 BP_systolic BP_systolic 92 mm[Hg] 06798599887547+0000 heart_rate heart_rate 98 /min 39986344442676+0000 height_metric height_metric 167.64 cm 12711712640588+0000 height_standard height_standard 66 in 99379524678271+0000 respiration_rate respiration_rate 15 /min 00918386120172+0000 temperature_metric temperature_metric 36.39 C 27465058282843+0000 temperature_standard temperature_standard 9 7.5 F 55055498482089+0000 weight_metric weight_metric 93.89 kg 02184691821965+0000 weight_standard weight_standard 207 lb 72135136694353+0000 BMI BMI 34.54 kg/m2 34084783939314+0000 BP_diastolic BP_diastolic 78 mm[H g] 16054690480296+0000 BP_systolic BP_systolic 171 mm[Hg] 99998578501015+0000 heart_rate heart_rate 70 /min 57395637048211+0000 height_metric height_metric 167.64 cm 04707595695331+0000 height_standard height_standard 66 in 64861762019380+0000 respiration_rate respiration_rate 16 /min 64128210943795+0000 temperature_metric temperature_metric 36.17 C 21555210889528+0000 temperature_standard temperature_standard 9 7.1 F 38412332920484+0000 weight_metric weight_metric 96.71 kg 18920563120321+0000 weight_standard weight_standard 213.2 lb
== END 2022-04-12 13:34 | disposition home or self-care (01) ==
LOC: ED 09:45
DX: I48.20 Chronic atrial fibrillation, unspecified (principal); Z79.01 Long term (current) use of anticoagulants
CPT/HCPCS: 36415; 80053; 83690; 83735; 83880; 84484; 85025; 92960; 93005; 94770; 99152; 99284

== ENCOUNTER 2022-05-09 09:18 | Emergency (ER) | payer MEDICARE, OTHER ==
[2022-05-09] MEDS ORDERED: METOPROLOL 5 MG/5 ML VIAL IVP STA (10:01)
[2022-05-09 10:08] LABS: BASOPHILS # (AUTO) 0.1 10^3/uL (0.0-0.1); BASOPHILS % (AUTO) 0.9 %; EOSINOPHILS # (AUTO) 0.2 10^3/uL (0.0-0.7); EOSINOPHILS % (AUTO) 4.1 %; HCT - HEMATOCRIT 35.9 % (37.0-47.0); HGB - HEMOGLOBIN 11.5 g/dL (12.0-16.0); LYMPHOCYTES # (AUTO) 0.9 10^3/uL (1.5-3.5); LYMPHOCYTES % (AUTO) 16.9 %; MEAN PLATELET VOLUME 9.7 fL (7.9-10.8); MONOCYTES # (AUTO) 0.5 10^3/uL (0.0-1.0); MONOCYTES % (AUTO) 10.2 %; NEUTROPHILS # (AUTO) 3.6 10^3/uL (1.5-6.6); NEUTROPHILS % (AUTO) 67.5 %; PLT - PLATELET COUNT 249 10^3/uL (130-450); RED CELL DISTRIBUTION WIDTH 19.2 % (12.0-15.0); WHITE BLOOD COUNT 5.3 x10^3/uL (4.8-10.8)
--- NOTE | 2022-05-09 10:13 | ED Physician Documentation ---
History of Present Illness - Stated complaint Stated Complaint: DIZZINESS/WEIRD HR - Chief complaint Chief Complaint: Cardiac - History obtained from History obtained from: Patient - History of Present Illness Timing: Last night - Additonal information Additional information: . 71-year-old female with history of paroxysmal A. fib on metoprolol, diltiazem, Eliquis presents by private vehicle for pounding heart rate and lightheadedness that began at midnight last night. Per her apple watch her heart rate has been up to the 150s she states she feels her heart pounding, but denies chest pain or shortness of breath. Patient states she took eliquis this morning but is only intermittently compliant with it because she can't afford her medications as prescribed. Review of Systems Ten Systems: 10 systems reviewed and negative Constitutional: denies: Fever, Chills, Fatigue, Weight Loss Eyes: denies: Loss of vision, Discharge Ears: denies: Loss of hearing, Ear pain, Tinnitus/ringing Nose: denies: Rhinorrhea / runny nose, Congestion, Epistaxis Throat: denies: Dental pain / toothache, Swollen tonsils Cardiac: reports: Palpitations. denies: Chest pain / pressure, Pedal edema, Calf pain Respiratory: denies: Dyspnea, Cough, Hemoptysis, Wheezing GI: denies: Abdominal Pain, Nausea, Vomiting : denies: Dysuria, Frequency, Hesitancy Skin: denies: Rash, Lesions, Laceration (s) Musculoskeletal: denies: Neck pain, Back pain, Extremity pain Neurologic: reports: Other (lightheaded). denies: Generalized weakness, Focal weakness, Numbness, Difficulty speaking, Near syncope, Syncope, Seizure, Confused, Altered mental status, Unresponsive, Headache, Head injury, LOC Psychiatric: denies: Depressed, Suicidal, Homicidal, Hallucinations Immunocompromised: denies: Immunocompromised, HIV/AIDS PD PAST MEDICAL HISTORY - Past Medical History Cardiovascular: Hypertension Respiratory: None Neuro: None Endocrine/Autoimmune: None GI: None BASIC ACOUSTIC ANALYST: None : None HEENT: None Psych: None Musculoskeletal: None Derm: None - Past Surgical History Past Surgical History: Yes General: Cholecystectomy, Appendectomy Ortho: 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, 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 - Present Medications Home Medications: Ambulatory Orders Medication Instructions Recorded Confirmed Lisinopril 20 mg PO DAILY 10/03/14 04/12/22 Multivitamin [Multivitamins] 1 each PO DAILY 10/03/14 04/12/22 Cholecalciferol [Vitamin D3] 25 mcg PO DAILY 08/17/21 04/12/22 Ferrous Sulfate 325 mg PO DAILY 08/17/21 04/12/22 Apixaban [Eliquis] 5 mg ORAL BID 04/12/22 04/12/22 - Allergies Allergies/Adverse Reactions: Allergies Allergy/AdvReac Type Severity Reaction Status Date / Time No Known Drug Allergies Allergy Verified 05/09/22 09:42 - Social History Does the pt smoke?: No Smoking Status: Never smoker Does the pt drink ETOH?: No Does the pt have substance abuse?: No - Immunizations Immunizations are current?: Yes PD ED PE NORMAL - General General: Alert and oriented X 3, No acute distress, Well developed/nourished - HEENT HEENT: Atraumatic, PERRL, EOMI - Neck Neck: Supple, no meningeal sign, No bony TTP, No JVD, No bruit - Cardiac Cardiac: No murmur, Other (Tachycardia, irregularly irregular) - Respiratory Respiratory: No respiratory distress, Clear bilaterally - Abdomen Abdomen: Normal bowel sounds, Soft, Non tender, Non distended, No organomegaly - Female Female : Deferred - Back Back: No CVA TTP, No spinal TTP - Derm Derm: Normal color, Warm and dry, No rash - Extremities Extremities: No deformity, No tenderness to palpate, Normal ROM s pain, No edema, No calf tenderness / cord - Neuro Neuro: Alert and oriented X 3, occupational therapist per diem 2-12 intact, No motor deficit, No sensory deficit, Normal speech - Psych Psych: Normal mood, Normal affect Results - Vitals Vitals: Vital Signs - 24 hr 05/09/22 05/09/22 05/09/22 09:40 10:12 10:30 Temperature 36.1 C L Heart Rate 64 80 83 Respiratory 16 15 13 Rate Blood Pressure 124/83 H 90/62 106/60 O2 Saturation 99 97 100 05/09/22 05/09/22 05/09/22 11:00 11:10 11:30 Temperature Heart Rate 73 89 92 Respiratory 15 16 16 Rate Blood Pressure 109/78 109/78 107/63 O2 Saturation 98 98 99 05/09/22 05/09/22 12:00 12:15 Temperature Heart Rate 91 74 Respiratory 18 21 Rate Blood Pressure 110/49 L 103/82 H O2 Saturation 99 99 Oxygen O2 Source [With Activity] Room air O2 Source [Without Activity] Room air O2 Source Room air - Labs Labs: Laboratory Tests 05/09/22 05/09/22 05/09/22 10:02 10:02 10:02 WBC 5.3 RBC 4.60 Hgb 11.5 L Hct 35.9 L MCV 78.0 L MCH 25.0 L MCHC 32.0 RDW 19.2 H Plt Count 249 MPV 9.7 Neut # (Auto) 3.6 Lymph # (Auto) 0.9 L [place] # (Auto) 0.5 Eos # (Auto) 0.2 Baso # (Auto) 0.1 Absolute Nucleated RBC 0.00 Nucleated RBC % 0.0 PT INR APTT Sodium 143 Potassium 3.9 Chloride 108 Carbon Dioxide 23 Anion Gap 12.0 BUN 19 Creatinine 0.7 Estimated GFR (MDRD) 82 L Glucose 104 H Calcium 10.0 Magnesium 2.0 Total Bilirubin 0.7 AST 24 ALT 16 Alkaline Phosphatase 82 Troponin I High Sens 7.2 Total Protein 7.3 Albumin 3.9 Globulin 3.4 Albumin/Globulin Ratio 1.1 Lipase 26 TSH 05/09/22 05/09/22 10:02 10:02 WBC RBC Hgb Hct MCV MCH MCHC RDW Plt Count MPV Neut # (Auto) Lymph # (Auto) [place] # (Auto) Eos # (Auto) Baso # (Auto) Absolute Nucleated RBC Nucleated RBC % PT 14.3 H INR 1.3 H APTT 35.8 H Sodium Potassium Chloride Carbon Dioxide Anion Gap BUN Creatinine Estimated GFR (MDRD) Glucose Calcium Magnesium Total Bilirubin AST ALT Alkaline Phosphatase Troponin I High Sens Total Protein Albumin Globulin Albumin/Globulin Ratio Lipase TSH 2.54 PD MEDICAL DECISION MAKING - ED course Complexity details: reviewed old records ED course: Patient presenting for elevated heart rate, lightheadedness. Found to be in A. fib with RVR. Patient already has documented history of A. fib, is currently on metoprolol and diltiazem. Patient was rate controlled with 1 dose of IV metoprolol. Subsequent heart rate remained in the 70s to 90s, blood pressure stable. Patient reported resolution of symptoms after her heart rate was controlled. Patient states that she has an appointment with her lead worker of housekeeping and laundry tomorrow. Patient's cardiology office contacted, who stated that no further treatment required in the ER at this time, if patient is asymptomatic with normal laboratory work she can follow-up tomorrow as previously scheduled. Patient was informed of this plan, she is happy to go home and follow-up on an outpatient basis. Patient was counseled on the importance of compliance with her Eliquis, she states that her lead worker of housekeeping and laundry is well aware of her difficulties affording this medication and she is currently working with him to find an alternate solution. - Consults Consults: Discussed case with (Dr. Hill (lead worker of housekeeping and laundry at patient's clinic)) Departure - Departure Disposition: 01 Home, Self Care Clinical Impression: Atrial fibrillation Qualifiers: Atrial fibrillation type: paroxysmal Qualified Code(s): I48.0 - Paroxysmal atrial fibrillation Condition: Good Instructions: Atrial Fibrillation Dc Discharge Date/Time: 05/09/22 12:24
--- OUTSIDE RECORDS SUMMARY | 2022-05-09 10:13 | EXTERNAL MEDICAL SUMMARY RPT | Continuity of Care Document ---
:1950 Author Organization [place] Address [address] [place] [address] Phone Allergies No information. Encounters No information. Functional Status No information. Immunizations No information. Medications date description facility +0000 aspirin [facility] [place] [phone]+0000 aspirin [facility] [place] [phone]+0000 citalopram [facility] [place] [phone]+0000 citalopram [facility] [place] [phone]+0000 citalopram [facility] [place] [phone]+0000 citalopram [facility] [place] [phone]+0000 metoprolol tartrate [facility] [place] [facility] [place] [phone]+0000 multivitamin [facility] [place] [phone]+0000 aspirin [facility] [place] [phone]+0000 aspirin [facility] [place] [phone]+0000 metoprolol tartrate [facility] [place] Problems No information. Procedures date description facility [id number]+0000 EKG Office Complete [facility] [place] [facility] [place] Results/Labs No information. Social History date description facility [phone]+0000 Never smoker [facility] [place] [phone]+0000 Never smoker [facility] [place] Vital Signs date measurement value units [id number]+0000 BMI BMI 33.53 kg/m2 52232261975614+0000 BP_diastolic BP_diastolic 50 mm[H g] 56393400809304+0000 BP_systolic BP_systolic 92 mm[Hg] 22515951370050+0000 heart_rate heart_rate 98 /min 81334537698231+0000 height_metric height_metric 167.64 cm 51215664728845+0000 height_standard height_standard 66 in 35454457150571+0000 respiration_rate respiration_rate 15 /min 82081982069927+0000 temperature_metric temperature_metric 36.39 C 08893349542007+0000 temperature_standard temperature_standard 9 7.5 F 01525071611362+0000 weight_metric weight_metric 93.89 kg 74974603726933+0000 weight_standard weight_standard 207 lb 81948479654909+0000 BMI BMI 34.54 kg/m2 66356803542100+0000 BP_diastolic BP_diastolic 78 mm[H g] 92788786967008+0000 BP_systolic BP_systolic 171 mm[Hg] 34523394462290+0000 heart_rate heart_rate 70 /min 11743873345065+0000 height_metric height_metric 167.64 cm 45380565492102+0000 height_standard height_standard 66 in 57467647454318+0000 respiration_rate respiration_rate 16 /min 36896315900981+0000 temperature_metric temperature_metric 36.17 C 33068499648534+0000 temperature_standard temperature_standard 9 7.1 F 52355776750155+0000 weight_metric weight_metric 96.71 kg 29958630110512+0000 weight_standard weight_standard 213.2 lb
[2022-05-09 10:20] LABS: INR 1.3 (0.8-1.2); PT - PROTHROMBIN TIME 14.3 secs (9.9-12.6)
[2022-05-09 10:27] LABS: ALBUMIN 3.9 g/dL (3.2-5.5); ALBUMIN/GLOBULIN RATIO 1.1 (1.0-2.2); BILIRUBIN,TOTAL 0.7 mg/dL (0.2-1.0); CREATININE 0.7 mg/dL (0.4-1.0); PARTIAL THROMBOPLASTIN TIME 35.8 secs (24.9-33.3); POTASSIUM 3.9 mmol/L (3.5-5.0); TOTAL PROTEIN 7.3 g/dL (6.7-8.2)
--- NOTE | 2022-05-09 10:49 | XRAY Report ---
PROCEDURE: Chest 1 View X-Ray INDICATIONS: Chest pain TECHNIQUE: One view of the chest was acquired. COMPARISON: Chest x-ray 04/12/2022 FINDINGS: Surgical changes and devices: None. Lungs and pleura: No pleural effusions or pneumothorax. Lungs are clear. Mediastinum: Mediastinal contours appear normal. Heart size is mildly enlarged Bones and chest wall: No suspicious bony lesions. Overlying soft tissues appear unremarkable. IMPRESSION: No acute pulmonary process. Reviewed by: Geneva Zelaya MD on 05/09/2022 10:47 AM PDT Approved by: Geneva Zelaya MD on 05/09/2022 10:47 AM PDT Station ID: [id number]
[2022-05-09 12:15] VITALS: BP 103/82
== END 2022-05-09 12:24 | disposition home or self-care (01) ==
LOC: ED 09:18
DX: I48.0 Paroxysmal atrial fibrillation (principal); Z91.14 Patient's other noncompliance with medication regimen
CPT/HCPCS: 36415; 80053; 83690; 83735; 84443; 84484; 85025; 85610; 85730; 93005; 96374; 99283

== ENCOUNTER 2022-05-09 19:11 | Emergency (ER) | payer MEDICARE, OTHER ==
--- OUTSIDE RECORDS SUMMARY | 2022-05-09 19:26 | EXTERNAL MEDICAL SUMMARY RPT | Continuity of Care Document ---
:1950 Author Organization [facility] Address [address] [place] [address] Phone Allergies No information. Encounters No information. Functional Status No information. Immunizations No information. Medications date description facility +0000 aspirin [facility] [place] [phone]+0000 aspirin [facility] [phone]+0000 citalopram [facility] [phone]+0000 citalopram [facility] [phone]+0000 citalopram [facility] [phone]+0000 citalopram [facility] [phone]+0000 metoprolol tartrate [facility] [phone]+0000 multivitamin [facility] [phone]+0000 aspirin [facility] [place] [phone]+0000 aspirin [facility] [place] [phone]+0000 metoprolol tartrate [facility] [place] Problems No information. Procedures date description facility [id number] EKG Office Complete [facility] [place] Results/Labs No information. Social History date description facility [id number]+0000 Never smoker [facility] [place] [phone]+0000 Never smoker [facility] [place] Vital Signs date measurement value units [id number]+0000 BMI BMI 33.53 kg/m2 33014519170863+0000 BP_diastolic BP_diastolic 50 mm[H g] 95979918938681+0000 BP_systolic BP_systolic 92 mm[Hg] 31588818078218+0000 heart_rate heart_rate 98 /min 74522635696682+0000 height_metric height_metric 167.64 cm 55216803120590+0000 height_standard height_standard 66 in 94752931883395+0000 respiration_rate respiration_rate 15 /min 99432509724121+0000 temperature_metric temperature_metric 36.39 C 10507483300446+0000 temperature_standard temperature_standard 9 7.5 F [id number]+0000 weight_metric weight_metric 93.89 kg 15250181001921+0000 weight_standard weight_standard 207 lb 94254617161683+0000 BMI BMI 34.54 kg/m2 53406220355539+0000 BP_diastolic BP_diastolic 78 mm[H g] 03092422366675+0000 BP_systolic BP_systolic 171 mm[Hg] 38796240895361+0000 heart_rate heart_rate 70 /min 00435024785050+0000 height_metric height_metric 167.64 cm 75161324046681+0000 height_standard height_standard 66 in 69023293549438+0000 respiration_rate respiration_rate 16 /min 41635118662952+0000 temperature_metric temperature_metric 36.17 C 68253336006261+0000 temperature_standard temperature_standard 9 7.1 F 33552888821916+0000 weight_metric weight_metric 96.71 kg 85615281970732+0000 weight_standard weight_standard 213.2 lb
--- NOTE | 2022-05-09 20:29 | ED Physician Documentation ---
History of Present Illness - Stated complaint Stated Complaint: AFIB - Chief complaint Chief Complaint: Cardiac - History obtained from History obtained from: Patient - History of Present Illness Timing: Today Pain level max: 5 Pain level now: 0 - Additonal information Additional information: 71-year-old female presents to the emergency department stating that she was at home today after being discharged here for atrial fibrillation. She did not eat or drink this morning. She was outside with someone mowing her lawn when she felt mildly lightheaded, she went to walk into the house, tripped fell backwards striking her head on the concrete. Possible loss of consciousness. She is on Eliquis. She states mild pain currently. No vomiting. No seizure activity. Nothing makes it better or worse. No neck or back pain. Review of Systems Constitutional: denies: Fever, Chills Respiratory: denies: Cough GI: denies: Vomiting, Diarrhea Skin: denies: Rash Musculoskeletal: denies: Neck pain, Back pain Neurologic: reports: Head injury. denies: Focal weakness, Numbness, Syncope, Headache, LOC PD PAST MEDICAL HISTORY - Past Medical History Past Medical History: Yes Cardiovascular: Hypertension Respiratory: None Neuro: None Endocrine/Autoimmune: None GI: None CNA PCT: None : None HEENT: None Psych: None Musculoskeletal: None Derm: None - Past Surgical History Past Surgical History: Yes General: Cholecystectomy, Appendectomy Ortho: Hip replacement /CNA PCT: section, Tubal ligation - Present Medications Home Medications: Ambulatory Orders Medication Instructions Recorded Confirmed Lisinopril 20 mg PO DAILY 10/03/14 05/09/22 Multivitamin [Multivitamins] 1 each PO DAILY 10/03/14 05/09/22 Cholecalciferol [Vitamin D3] 25 mcg PO DAILY 08/17/21 05/09/22 Ferrous Sulfate 325 mg PO DAILY 08/17/21 05/09/22 Apixaban [Eliquis] 5 mg ORAL BID 04/12/22 05/09/22 - Allergies Allergies/Adverse Reactions: Allergies Allergy/AdvReac Type Severity Reaction Status Date / Time No Known Drug Allergies Allergy Verified 05/09/22 19:50 - Social History Does the pt smoke?: No Smoking Status: Never smoker Does the pt drink ETOH?: No Does the pt have substance abuse?: No - Immunizations Immunizations are current?: Yes PD ED PE NORMAL - Vitals Vital signs reviewed: Yes - General General: Alert and oriented X 3, No acute distress, Well developed/nourished - HEENT HEENT: PERRL, Moist mucous membranes, Other (Small occipital hematoma. No palpable skull fractures. 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, No motor deficit, No sensory deficit, Normal speech Eye Opening: Spontaneous Motor: Obeys Commands Verbal: Oriented GCS Score: 15 - Psych Psych: Normal mood, Normal affect Results - Vitals Vitals: Vital Signs - 24 hr 05/09/22 05/09/22 05/09/22 19:51 19:56 20:15 Temperature 36.8 C Heart Rate 60 61 Respiratory 15 16 Rate Blood Pressure 158/70 H 158/70 H O2 Saturation 97 97 05/09/22 05/09/22 05/09/22 20:26 20:30 21:06 Temperature Heart Rate 61 61 84 Respiratory 16 14 16 Rate Blood Pressure 158/79 H 158/79 H O2 Saturation 97 97 Oxygen O2 Source [] Room air O2 Source [] Room air O2 Source Room air - EKG (time done) 1926 Rate: Rate (enter#) (61) Rhythm: NSR [place]: Normal Intervals: Normal [place] QRS: Normal, LVH - Rads (name of study) Head CT Radiology: Final report received, EMP read contemporaneously, See rad report PD MEDICAL DECISION MAKING - ED course Complexity details: reviewed results, re-evaluated patient, considered differ ential, d/w patient ED course: No acute findings on head CT. No other acute injuries. No arrhythmias here. No indication for repeat blood work. No chest pain. No shortness of breath. No syncope. Patient counseled regarding signs and symptoms for which I believe and urgent re-evaluation would be necessary. Patient with good understanding of and agreement to plan and is comfortable going home at this time This document was made in part using voice recognition software. While efforts are made to proofread this document, sound alike and grammatical errors may occ ur. Head injury instructions given at bedside Departure - Departure Disposition: 01 Home, Self Care Clinical Impression: Fall from ground level Closed head injury Qualifiers: Encounter type: initial encounter Qualified Code(s): S09.90XA - Unspecified injury of head, initial encounter Condition: Good Instructions: ED Head Injury Closed Follow-Up: Sandy Guzman ARNP [Primary Care Provider] - Within 1 week Comments: Your head CT does not show any acute abnormalities tonight. Please continue your medications at home. Please return if you worsen. Discharge Date/Time: 05/09/22 21:06
--- NOTE | 2022-05-09 20:41 | CT Report ---
PROCEDURE: HEAD WO INDICATIONS: head injury, + loc TECHNIQUE: Noncontrast 4.5 mm thick angled axial sections acquired from the foramen magnum to the vertex. For r adiation dose reduction, the following was used: automated exposure control, adjustment of mA and/or kV according to patient size. COMPARISON: None. FINDINGS: Image quality: Excellent. CSF spaces: Basal cisterns are patent. No extra-axial fluid collections. Ventricles are normal in size and shape. Brain: No midline shift. No intracranial masses or hemorrhage. No area of hypodensity in a vascula r distribution to suggest acute infarction. There is periventricular hypodensity consistent with linen aide pj microvascular ischemic disease. Age-related parenchymal loss. Skull and face: Left occipital scalp hematoma. Calvarium and visualized facial bones are intact, wit hout suspicious lesions. Sinuses: Visualized sinuses and mastoids are clear. IMPRESSION: No acute intracranial abnormality. Left occipital scalp hematoma. Reviewed by: Michele Cortez MD on 05/09/2022 8:39 PM PDT Approved by: Michele Cortez MD on 05/09/2022 8:39 PM PDT Station ID: [id number]
[2022-05-09 20:44] VITALS: BP 158/79
== END 2022-05-09 21:06 | disposition home or self-care (01) ==
LOC: ED 19:11
DX: S09.90XA Unspecified injury of head, initial encounter (principal); W01.198A Fall on same level from slipping, tripping and stumbling with subsequent striking against other object, initial encounter; Y93.01 Activity, walking, marching and hiking; Y92.008 Other place in unspecified non-institutional (private) residence as the place of occurrence of the external cause; I48.0 Paroxysmal atrial fibrillation; Z91.14 Patient's other noncompliance with medication regimen
CPT/HCPCS: 36415; 80053; 83690; 83735; 84443; 84484; 85025; 85610; 85730; 93005; 96374; 99282; 99283; 99284

== ENCOUNTER 2022-05-18 08:00 | Outpatient (CLI) | payer MEDICARE, OTHER ==
--- NOTE | 2022-05-18 13:55 | XRAY Report ---
PROCEDURE: Cervical Spine 2 View INDICATIONS: NECK PAIN TECHNIQUE: 3 view(s) of the cervical spine were acquired. COMPARISON: None. FINDINGS: Bones: No fractures or dislocations to the T1 level. The lateral masses of C1 appear intact on the odontoid view. No suspicious bony lesions. At least moderate cervical spondylitic change. Multileve l facet arthropathy bilaterally. Soft tissues: No prevertebral soft tissue swelling. IMPRESSION: Cervical spondylosis. No evidence acute bony abnormality of the cervical spine. If clinical suspicion and/or symptoms persist, cervical spine MRI may be helpful. Reviewed by: Milad Martinez MD on 05/18/2022 1:54 PM PDT Approved by: Milad Martinez MD on 05/18/2022 1:54 PM PDT Station ID: [id number]
--- NOTE | 2022-05-18 16:27 | XRAY Report ---
PROCEDURE: Shoulder 3 View LT INDICATIONS: LEFT SHOULDER PAIN TECHNIQUE: 3 views of the shoulder were acquired. COMPARISON: None. FINDINGS: Bones: Mild periarticular osteophyte formation at the acromioclavicular and glenohumeral joints. No fractures or dislocations. No suspicious bony lesions. Visualized ribs appear intact. Soft tissues: No suspicious soft tissue calcifications. IMPRESSION: Osteoarthritis. No acute fracture. No osseous lesion. If symptoms and/or clinical suspic ion for pathology continue, further assessment with repeat plain films, or advanced imaging (e.g., CT , MRI, or bone scan) is recommended for further assessment. Reviewed by: Marley Lemus MD on 05/18/2022 4:26 PM PDT Approved by: Marley Lemus MD on 05/18/2022 4:26 PM PDT Station ID: [id number]
== END 2022-05-18 23:59 | disposition home or self-care (01) ==
LOC: DI.S 08:00
PROVIDERS: ATTEND Registered Nurse
DX: M47.812 Spondylosis without myelopathy or radiculopathy, cervical region (principal); M19.012 Primary osteoarthritis, left shoulder

== ENCOUNTER 2022-05-18 13:14 | Outpatient (CLI) | payer MEDICARE, OTHER | END 2022-05-18 13:15 | disposition critical access hospital (66) | LOC: EMS 13:14 | DX: I48.91 Unspecified atrial fibrillation (principal) | CPT/HCPCS: A0425; A0427 ==

== ENCOUNTER 2022-05-18 13:47 | Emergency (ER) | payer MEDICARE, OTHER ==
--- NOTE | 2022-05-18 14:26 | ED Physician Documentation ---
History of Present Illness - Stated complaint Stated Complaint: AFIB - Chief complaint Chief Complaint: Cardiac - History obtained from History obtained from: Patient, EMS - Additonal information Additional information: The patient comes to the emergency department via EMS for chief complaint of atrial fibrillation with rapid heart rate. The patient has a well-established history of paroxysmal atrial fibrillation, though it seems she has been increasingly dominantly in A. fib. She is followed by cardiology in [place] and last saw them about a month ago. She is currently on extended release met oprolol, as well as Cardizem, and has some immediate acting metoprolol for rescue if needed. The patient also takes lisinopril and Coumadin. She states that often she does not even know if she is in A. fib but when her heart starts to beat fast she can feel it. Normally, she just feels her pulse out of curiosity and discovers that it is irregular when she has a normal heart rate. She was just here about a week and a half ago for another episode of A. fib with RVR and at that time, was well controlled with metoprolol. She has not had to go through electrical cardioversion, particularly since she continues to be in A. fib quite frequently. The patient denies any chest pain or shortness of breath. She states she started to feel as though her heart was beating fast and when she realized it was, she called EMS. She did not take any of her rescue metoprolol. The patient was given diltiazem in route through the IV and has been rate controlled since per medics. The patient has no complaints at this time. Review of Systems Ten Systems: 10 systems reviewed and negative Constitutional: reports: Reviewed and negative Eyes: reports: Reviewed and negative Ears: reports: Reviewed and negative Nose: reports: Reviewed and negative Throat: reports: Reviewed and negative Cardiac: reports: Palpitations Respiratory: reports: Reviewed and negative GI: reports: Reviewed and negative : reports: Reviewed and negative Skin: reports: Reviewed and negative Musculoskeletal: reports: Reviewed and negative Neurologic: reports: Reviewed and negative Psychiatric: reports: Reviewed and negative Endocrine: reports: Reviewed and negative Immunocompromised: reports: Reviewed and negative PD PAST MEDICAL HISTORY - Past Medical History Cardiovascular: Hypertension Respiratory: None Neuro: None Endocrine/Autoimmune: None GI: None FOURCHETTE 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 : None HEENT: None Psych: None Musculoskeletal: None Derm: None - Past Surgical History Past Surgical History: Yes General: Cholecystectomy, Appendectomy Ortho: Hip replacement /FOURCHETTE SEWER: section, Tubal ligation - Present Medications Home Medications: Ambulatory Orders Medication Instructions Recorded Confirmed Lisinopril 20 mg PO DAILY 10/03/14 05/09/22 Multivitamin [Multivitamins] 1 each PO DAILY 10/03/14 05/09/22 Cholecalciferol [Vitamin D3] 25 mcg PO DAILY 08/17/21 05/09/22 Ferrous Sulfate 325 mg PO DAILY 08/17/21 05/09/22 Apixaban [Eliquis] 5 mg ORAL BID 04/12/22 05/09/22 - Allergies Allergies/Adverse Reactions: Allergies Allergy/AdvReac Type Severity Reaction Status Date / Time No Known Drug Allergies Allergy Verified 05/18/22 13:57 - Social History Does the pt smoke?: No Smoking Status: Never smoker Does the pt drink ETOH?: No Does the pt have substance abuse?: No - Immunizations Immunizations are current?: Yes PD ED PE NORMAL - Vitals Vital signs reviewed: Yes - General General: Alert and oriented X 3, No acute distress, Well developed/nourished - HEENT HEENT: Atraumatic, PERRL, EOMI, Moist mucous membranes - Neck Neck: Supple, no meningeal sign - Cardiac Cardiac: No murmur, Strong equal pulses, Other (Irregularly irregular rhythm with normal average rate) - Respiratory Respiratory: No respiratory distress, Clear bilaterally - Abdomen Abdomen: Soft, Non tender, Non distended - Derm Derm: Warm and dry - Extremities Extremities: No deformity - Neuro Neuro: Alert and oriented X 3 - Psych Psych: Normal mood, Normal affect Results - Vitals Vitals: Vital Signs - 24 hr 05/18/22 13:52 Temperature 36.7 C Heart Rate 66 Respiratory 16 Rate Blood Pressure 118/78 O2 Saturation 96 Oxygen O2 Source [With Activity] Room air O2 Source [Without Activity] Room air O2 Source Room air - EKG (time done) 1359 Rate: Rate (enter#) (62) Rhythm: Atrial fibrillation [place]: Normal Intervals: Normal [place] QRS: LVH Ischemia: Normal ST segments Compare to prior EKG: Unchanged from prior EKG Computer interpretation: Agree with computer PD MEDICAL DECISION MAKING - ED course Complexity details: reviewed results, re-evaluated patient, considered differential, d/w patient ED course: The patient was very well-appearing without complaints upon arrival in the emergency department. She had not had any recent illness which would be expected to alter her electrolytes and had just recently had a full work-up for her A. fib. The patient is already on several medications with regard to her cardiovascular system, and after review of past records, I found that her flat surfacer jewel had previously recommended a goal of rate control, not cardioversion. I felt the patient was stable for discharge home without further intervention or diagnostics. We have discussed the need to follow-up with her flat surfacer jewel if her atrial fibrillation continues to be difficult to control, rate alexis. We have discussed the usual indications for return. Departure - Departure Disposition: 01 Home, Self Care Clinical Impression: Atrial fibrillation with RVR Condition: Stable Instructions: ED Afib Comments: You have responded very well to IV of diltiazem in route to the hospital. Your heart rate has remained normal, though you are still in A. fib. I have reviewed your previous records, in which your flat surfacer jewel recommended control of your rate to within normal limits, rather than having a goal of getting you out of A. fib. Please continue to take your medications as directed. If you feel that your medications are no longer effective at controlling the atrial fibrillation, then you will need to make an appointment with your flat surfacer jewel to follow-up and determine what to do next. If you develop a very high heart rate again, or chest pain and shortness of breath along with your fast or irregular heart rhythm, you should return to the emergency department.
[2022-05-18 14:29] VITALS: BP 106/63
--- OUTSIDE RECORDS SUMMARY | 2022-05-18 14:40 | EXTERNAL MEDICAL SUMMARY RPT | Continuity of Care Document ---
:1950 Author Organization [place] Address [address] [place] [address] Phone Allergies No information. Encounters No information. Functional Status No information. Immunizations No information. Medications date description facility +0000 aspirin [facility] [place] [id number] aspirin [facility] [place] [phone]+0000 citalopram [facility] [place] [phone]+0000 citalopram [facility] [place] [phone]+0000 citalopram [facility] [place] [phone]+0000 citalopram [facility] [place] [phone]+0000 metoprolol tartrate [facility] [place] [phone]+0000 multivitamin [facility] [place] [phone]+0000 aspirin [facility] [place] [phone]+0000 aspirin [facility] [place] [phone]+0000 metoprolol tartrate [facility] [place] Problems No information. Procedures date description facility [id number] EKG Office Complete [facility] [place] Results/Labs No information. Social History date description facility [id number]+0000 Never smoker [facility] [place] [phone]+0000 Never smoker [facility] [place] Vital Signs date measurement value units [id number]+0000 BMI BMI 33.53 kg/m2 73563561406641+0000 BP_diastolic BP_diastolic 50 mm[H g] 45175056626145+0000 BP_systolic BP_systolic 92 mm[Hg] 31215560841256+0000 heart_rate heart_rate 98 /min 40228446140563+0000 height_metric height_metric 167.64 cm 49877788995857+0000 height_standard height_standard 66 in 65125397157554+0000 respiration_rate respiration_rate 15 /min 88278174817535+0000 temperature_metric temperature_metric 36.39 C [id number]+0000 temperature_standard temperature_standard 9 7.5 F 83790253473457+0000 weight_metric weight_metric 93.89 kg 71611010735839+0000 weight_standard weight_standard 207 lb 68607359377721+0000 BMI BMI 34.54 kg/m2 52773891448902+0000 BP_diastolic BP_diastolic 78 mm[H g] 85495810605530+0000 BP_systolic BP_systolic 171 mm[Hg] 09233121988668+0000 heart_rate heart_rate 70 /min 48477978627508+0000 height_metric height_metric 167.64 cm 80371846431583+0000 height_standard height_standard 66 in 16593053776430+0000 respiration_rate respiration_rate 16 /min 99001950991345+0000 temperature_metric temperature_metric 36.17 C 41265436067329+0000 temperature_standard temperature_standard 9 7.1 F 55381272625666+0000 weight_metric weight_metric 96.71 kg 35332810601249+0000 weight_standard weight_standard 213.2 lb
== END 2022-05-18 14:41 | disposition home or self-care (01) ==
LOC: EDUNIT# → ED 13:47
DX: I48.91 Unspecified atrial fibrillation (principal); Z79.01 Long term (current) use of anticoagulants; M47.812 Spondylosis without myelopathy or radiculopathy, cervical region; M19.012 Primary osteoarthritis, left shoulder
CPT/HCPCS: 93005; 99283

== ENCOUNTER 2022-06-23 07:45 | Outpatient (CLI) | payer MEDICARE, OTHER | END 2022-06-23 07:46 | disposition home or self-care (01) | LOC: LAB.S 07:45 | PROVIDERS: ATTEND Registered Nurse | DX: Z79.01 Long term (current) use of anticoagulants (principal); I48.91 Unspecified atrial fibrillation | CPT/HCPCS: 36416; 85610 ==

== ENCOUNTER 2022-06-28 14:41 | Outpatient (CLI) | payer MEDICARE, OTHER ==
--- NOTE | 2022-06-28 16:24 | MRI Report ---
PROCEDURE: Brain W/O INDICATIONS: CONSTANT VERTIGO, SYNCOPE TECHNIQUE: Noncontrast axial T1 spin echo, axial T2 fast spin echo, sagittal and axial FLAIR, coronal T2 fast sp in echo, axial gradient echo, axial diffusion and ADC through the brain. COMPARISON: Head CT dated 05/09/2022 FINDINGS: Image quality: Excellent. CSF Spaces: Basal cisterns are patent. No extra-axial fluid collections. Ventricles are normal in size and shape. Brain: No intracranial masses or hemorrhage. Mild diffuse cerebral volume loss is present. Mild degr ee of patchy high FLAIR signal within the periventricular and subcortical white matter. Nunez/white ma tter interface is normal. Brainstem appears normal. Diffusion-weighted images demonstrate no acute ischemic insult. No chronic ischemic insults. Normal intravascular flow voids are present. Skull and face: Calvarium has normal marrow signal. Orbits appear normal. Sinuses: Mild mucosal thickening within the bilateral maxillary sinuses. IMPRESSION: 1. Mild volume loss and small vessel ischemic disease. 2. No acute process. No recent infarct. Reviewed by: Marley Lemus MD on 06/28/2022 4:23 PM PDT Approved by: Marley Lemus MD on 06/28/2022 4:23 PM PDT Station ID: [id number]
== END 2022-06-28 14:42 | disposition home or self-care (01) ==
LOC: DI 14:41
PROVIDERS: ATTEND Registered Nurse
DX: R42 Dizziness and giddiness (principal); R55 Syncope and collapse

== ENCOUNTER 2022-07-01 09:16 | Outpatient (CLI) | payer MEDICARE, OTHER | END 2022-07-01 09:17 | disposition home or self-care (01) | LOC: LAB.S 09:16 | PROVIDERS: ATTEND Registered Nurse | DX: Z79.01 Long term (current) use of anticoagulants (principal); I48.91 Unspecified atrial fibrillation | CPT/HCPCS: 36416; 85610 ==

== ENCOUNTER 2022-07-15 11:33 | Outpatient (CLI) | payer MEDICARE, OTHER | END 2022-07-15 11:34 | disposition home or self-care (01) | LOC: LAB.S 11:33 | PROVIDERS: ATTEND Registered Nurse | DX: I48.91 Unspecified atrial fibrillation (principal); Z79.01 Long term (current) use of anticoagulants | CPT/HCPCS: 36416; 85610 ==

== ENCOUNTER 2022-07-22 09:05 | Outpatient (CLI) | payer MEDICARE, OTHER | END 2022-07-22 09:06 | disposition home or self-care (01) | LOC: LAB.S 09:05 | PROVIDERS: ATTEND Registered Nurse | DX: Z79.01 Long term (current) use of anticoagulants (principal); I48.91 Unspecified atrial fibrillation | CPT/HCPCS: 36416; 85610 ==

== ENCOUNTER 2022-08-26 07:46 | Outpatient (CLI) | payer MEDICARE, OTHER ==
[2022-08-26 14:51] LABS: BASOPHILS # (AUTO) 0.1 10^3/uL (0.0-0.1); BASOPHILS % (AUTO) 1.6 %; EOSINOPHILS # (AUTO) 0.2 10^3/uL (0.0-0.7); EOSINOPHILS % (AUTO) 4.5 %; HCT - HEMATOCRIT 41.4 % (37.0-47.0); HGB - HEMOGLOBIN 12.3 g/dL (12.0-16.0); LYMPHOCYTES # (AUTO) 1.1 10^3/uL (1.5-3.5); LYMPHOCYTES % (AUTO) 22.4 %; MEAN CORPUSCULAR HGB CONC 29.7 g/dL (32.0-36.0); MEAN PLATELET VOLUME 10.9 fL (7.9-10.8); MONOCYTES # (AUTO) 0.4 10^3/uL (0.0-1.0); MONOCYTES % (AUTO) 8.1 %; NEUTROPHILS # (AUTO) 3.2 10^3/uL (1.5-6.6); PLT - PLATELET COUNT 310 10^3/uL (130-450); RED BLOOD COUNT 4.55 10^6/uL (4.20-5.40); RED CELL DISTRIBUTION WIDTH 17.8 % (12.0-15.0); WHITE BLOOD COUNT 5.1 x10^3/uL (4.8-10.8)
[2022-08-26 15:04] LABS: CALCIUM 9.2 mg/dL (8.5-10.3); CREATININE 0.7 mg/dL (0.4-1.0); POTASSIUM 4.1 mmol/L (3.5-5.0)
[2022-08-26 16:04] LABS: INR 1.2 (0.8-1.2); PT - PROTHROMBIN TIME 13.2 secs (9.9-12.6)
== END 2022-08-26 07:47 | disposition home or self-care (01) ==
LOC: LAB.S 07:46
PROVIDERS: ATTEND Internal Medicine
DX: I48.19 Other persistent atrial fibrillation (principal); I48.0 Paroxysmal atrial fibrillation; Z79.01 Long term (current) use of anticoagulants
CPT/HCPCS: 36415; 80048; 85025; 85610

== ENCOUNTER 2022-08-30 13:03 | Outpatient (CLI) | payer MEDICARE, OTHER ==
--- NOTE | 2022-08-30 17:36 | XRAY Report ---
PROCEDURE: Hip 2 View RT INDICATIONS: RIGHT TOTAL HIP TECHNIQUE: 2 views of the hip were acquired. COMPARISON: 10/05/2021 FINDINGS: Bones: There is right hip alignment is anatomic. No evidence of hardware loosening or failure. Prior bilateral total hip arthroplasty. No fractures or dislocations. No suspicious bony lesions. The vi sualized pelvic ring appears intact. Soft tissues: No suspicious soft tissue calcifications or masses. IMPRESSION: Prior bilateral total hip arthroplasty. Stable and anatomic right hip alignment. No evidence of hardw are complication. No fracture or dislocation. Reviewed by: Eddie Ferguson MD on 08/30/2022 5:35 PM PST Approved by: Eddie Ferguson MD on 08/30/2022 5:35 PM PST Station ID: [id number]
== END 2022-08-30 13:04 | disposition home or self-care (01) ==
LOC: DI.WOS 13:03
PROVIDERS: ATTEND Physician Assistant Surgical
DX: Z09 Encounter for follow-up examination after completed treatment for conditions other than malignant neoplasm (principal); Z96.643 Presence of artificial hip joint, bilateral

== ENCOUNTER 2022-09-23 08:23 | Outpatient (CLI) | payer MEDICARE, OTHER | END 2022-09-23 08:24 | disposition home or self-care (01) | LOC: LAB.S 08:23 | PROVIDERS: ATTEND Registered Nurse | DX: Z79.01 Long term (current) use of anticoagulants (principal); I48.91 Unspecified atrial fibrillation | CPT/HCPCS: 36416; 85610 ==

== ENCOUNTER 2022-10-03 09:19 | Outpatient (CLI) | payer MEDICARE, OTHER | END 2022-10-03 09:20 | disposition home or self-care (01) | LOC: LAB.S 09:19 | PROVIDERS: ATTEND Registered Nurse | DX: Z79.01 Long term (current) use of anticoagulants (principal); I48.91 Unspecified atrial fibrillation | CPT/HCPCS: 36416; 85610 ==

== ENCOUNTER 2022-10-20 10:58 | Outpatient (CLI) | payer MEDICARE, OTHER | END 2022-10-20 10:59 | disposition home or self-care (01) | LOC: LAB.S 10:58 | PROVIDERS: ATTEND Registered Nurse | DX: Z79.01 Long term (current) use of anticoagulants (principal); I48.91 Unspecified atrial fibrillation | CPT/HCPCS: 36416; 85610 ==

== ENCOUNTER 2022-10-31 08:10 | Outpatient (CLI) | payer MEDICARE, OTHER | END 2022-10-31 08:11 | disposition home or self-care (01) | LOC: LAB.S 08:10 | PROVIDERS: ATTEND Registered Nurse | DX: Z79.01 Long term (current) use of anticoagulants (principal); I48.91 Unspecified atrial fibrillation | CPT/HCPCS: 36416; 85610 ==

== ENCOUNTER 2022-11-18 07:55 | Outpatient (CLI) | payer MEDICARE, OTHER | END 2022-11-18 07:56 | disposition home or self-care (01) | LOC: LAB.S 07:55 | PROVIDERS: ATTEND Registered Nurse | DX: Z79.01 Long term (current) use of anticoagulants (principal); I48.91 Unspecified atrial fibrillation | CPT/HCPCS: 36416; 85610 ==

== ENCOUNTER 2022-12-01 08:33 | Outpatient (CLI) | payer MEDICARE, OTHER | END 2022-12-01 08:34 | disposition home or self-care (01) | LOC: LAB.S 08:33 | PROVIDERS: ATTEND Registered Nurse | DX: Z79.01 Long term (current) use of anticoagulants (principal); I48.91 Unspecified atrial fibrillation | CPT/HCPCS: 36416; 85610 ==

== ENCOUNTER 2022-12-04 09:47 | Emergency (ER) | payer MEDICARE, OTHER ==
--- OUTSIDE RECORDS SUMMARY | 2022-12-04 10:10 | EXTERNAL MEDICAL SUMMARY RPT | Continuity of Care Document ---
:1950 Author Organization [facility] Address [address] [place] [address] Phone Care Team Providers Name Role Phone Unavailable Unavailable Unavailable Sandy Carpenter Unavailable Unavailable Allergies No information. Encounters No information. Functional Status No information. Immunizations No information. Medications date description facility 2022-09-07 00:00 aspirin [facility] 2022-09-08 00:00 aspirin [facility] 2022-09-23 00:00 aspirin [facility] 2022-09-26 00:00 aspirin [facility] 2022-10-03 00:00 aspirin [facility] [place] 2022-10-04 00:00 aspirin [facility] [place] 2022-10-20 00:00 aspirin [facility] [place] 2022-10-21 00:00 aspirin [facility] [place] 2022-10-31 00:00 aspirin [facility] [place] 2022-11-01 00[facility]00 aspirin [facility] [place] 2022-11-18 00:00 aspirin [facility] [place] 2022-11-21 00:00 aspirin [facility] [place] 2022-12-01 00:00 aspirin [facility] [place] 2022-09-07 00:00 multivitamin [facility] 2022-09-08 00:00 multivitamin [facility] [place] 2022-09-23 00:00 multivitamin [facility] [place] 2022-09-26 00:00 multivitamin [facility] [place] 2022-10-03 00:00 multivitamin [facility] [place] 2022-10-04 00:00 multivitamin [facility] [place] 2022-10-20 00:00 multivitamin [facility] [place] 2022-10-21 00:00 multivitamin [facility] [place] 2022-10-31 00:00 multivitamin [facility] [place] 2022-11-01 00:00 multivitamin [facility] [place] 2022-11-18 00:00 multivitamin [facility] [place] 2022-11-21 00:00 multivitamin [facility] [place] 2022-12-01 00:00 multivitamin [facility] [place] 2022-09-07 00:00 aspirin [facility] [place] 2022-09-08 00:00 aspirin [facility] [place] 2022-09-23 00:00 aspirin [facility] [place] 2022-09-26 00:00 aspirin [facility] [place] 2022-10-03 00:00 aspirin [facility] [place] 2022-10-04 00:00 aspirin [facility] [place] 2022-10-20 00:00 aspirin [facility] [place] 2022-10-21 00:00 aspirin [facility] [place] 2022-10-31 00:00 aspirin [facility] [place] 2022-11-01 00:00 aspirin [facility] [place] 2022-11-18 00:00 aspirin [facility] [place] 2022-11-21 00:00 aspirin [facility] [place] 2022-12-01 00:00 aspirin [facility] [place] 2022-09-07 00:00 warfarin [facility] [place] 2022-09-08 00:00 warfarin [facility] [place] 2022-09-23 00:00 warfarin [facility] [place] 2022-09-26 00:00 warfarin [facility] [place] 2022-10-03 00:00 warfarin [facility] [place] 2022-10-04 00:00 warfarin [facility] [place] 2022-10-20 00:00 warfarin [facility] [place] 2022-10-21 00:00 warfarin [facility] [place] 2022-10-31 00:00 warfarin [facility] [place] 2022-11-01 00:00 warfarin [facility] [place] 2022-11-18 00:00 warfarin [facility] [place] 2022-11-21 00:00 warfarin [facility] [place] 2022-12-01 00:00 warfarin [facility] [place] 2022-09-07 00:00 citalopram [facility] [place] 2022-09-08 00:00 citalopram [facility] [place] 2022-09-23 00:00 citalopram [facility] [place] 2022-09-26 00:00 citalopram [facility] [place] 2022-10-03 00:00 citalopram [facility] [place] 2022-10-04 00:00 citalopram [facility] [place] 2022-10-20 00:00 citalopram [facility] [place] 2022-10-21 00:00 citalopram [facility] [place] 2022-10-31 00:00 citalopram [facility] [place] 2022-11-01 00:00 citalopram [facility] [place] 2022-11-18 00:00 citalopram [facility] [place] 2022-11-21 00:00 citalopram [facility] [place] 2022-12-01 00:00 citalopram [facility] [place] 2022-09-07 00:00 metoprolol tartrate [facility] [place] 2022-09-08 00:00 metoprolol tartrate [facility] [place] 2022-09-23 00:00 metoprolol tartrate [facility] [place] 2022-09-26 00:00 metoprolol tartrate [facility] [place] 2022-10-03 00:00 metoprolol tartrate [facility] [place] 2022-10-04 00:00 metoprolol tartrate [facility] [place] 2022-10-20 00:00 metoprolol tartrate [facility] [place] 2022-10-21 00:00 metoprolol tartrate [facility] [place] 2022-10-31 00:00 metoprolol tartrate [facility] [place] 2022-11-01 00:00 metoprolol tartrate [facility] [place] 2022-11-18 00:00 metoprolol tartrate [facility] [place] 2022-11-21 00:00 metoprolol tartrate [facility] [place] 2022-12-01 00:00 metoprolol tartrate [facility] [place] 2022-09-07 00:00 warfarin [facility] [place] 2022-09-08 00:00 warfarin [facility] [place] 2022-09-23 00:00 warfarin [facility] [place] 2022-09-26 00:00 warfarin [facility] [place] 2022-10-03 00:00 warfarin [facility] [place] 2022-10-04 00:00 warfarin [facility] [place] 2022-10-20 00:00 warfarin [facility] [place] 2022-10-21 00:00 warfarin [facility] [place] 2022-10-31 00:00 warfarin [facility] [place] 2022-11-01 00:00 warfarin [facility] [place] 2022-11-18 00:00 warfarin [facility] [place] 2022-11-21 00:00 warfarin [facility] [place] 2022-12-01 00:00 warfarin [facility] [place] 2022-09-07 00:00 citalopram [facility] [place] 2022-09-08 00:00 citalopram [facility] [place] 2022-09-23 00:00 citalopram [facility] [place] 2022-09-26 00:00 citalopram [facility] [place] 2022-10-03 00:00 citalopram [facility] [place] 2022-10-04 00:00 citalopram [facility] [place] 2022-10-20 00:00 citalopram [facility] [place] 2022-10-21 00:00 citalopram [facility] [place] 2022-10-31 00:00 citalopram [facility] [place] 2022-11-01 00:00 citalopram [facility] [place] 2022-11-18 00:00 citalopram [facility] [place] 2022-11-21 00:00 citalopram [facility] [place] 2022-12-01 00:00 citalopram [facility] [place] 2022-09-07 00:00 citalopram [facility] [place] 2022-09-08 00:00 citalopram [facility] [place] 2022-09-23 00:00 citalopram [facility] [place] 2022-09-26 00:00 citalopram [facility] [place] 2022-10-03 00:00 citalopram [facility] [place] 2022-10-04 00:00 citalopram [facility] [place] 2022-10-20 00:00 citalopram [facility] [place] 2022-10-21 00:00 citalopram [facility] [place] 2022-10-31 00:00 citalopram [facility] [place] 2022-11-01 00:00 citalopram [facility] [place] 2022-11-18 00:00 citalopram [facility] [place] 2022-11-21 00:00 citalopram [facility] [place] 2022-12-01 00:00 citalopram [facility] [place] 2022-09-07 00:00 metoprolol tartrate [facility] [place] 2022-09-08 00:00 metoprolol tartrate [facility] [place] 2022-09-23 00:00 metoprolol tartrate [facility] [place] 2022-09-26 00:00 metoprolol tartrate [facility] [place] 2022-10-03 00:00 metoprolol tartrate [facility] [place] 2022-10-04 00:00 metoprolol tartrate [facility] [place] 2022-10-20 00:00 metoprolol tartrate [facility] [place] 2022-10-21 00:00 metoprolol tartrate [facility] [place] 2022-10-31 00:00 metoprolol tartrate [facility] [place] 2022-11-01 00:00 metoprolol tartrate [facility] [place] 2022-11-18 00:00 metoprolol tartrate [facility] [place] 2022-11-21 00:00 metoprolol tartrate [facility] [place] 2022-12-01 00:00 metoprolol tartrate [facility] [place] 2022-09-07 00:00 citalopram [facility] [place] 2022-09-08 00:00 citalopram [facility] [place] 2022-09-23 00:00 citalopram [facility] [place] 2022-09-26 00:00 citalopram [facility] [place] 2022-10-03 00:00 citalopram [facility] [place] 2022-10-04 00:00 citalopram [facility] [place] 2022-10-20 00:00 citalopram [facility] [place] 2022-10-21 00:00 citalopram [facility] [place] 2022-10-31 00:00 citalopram [facility] [place] 2022-11-01 00:00 citalopram [facility] [place] 2022-11-18 00:00 citalopram [facility] [place] 2022-11-21 00:00 citalopram [facility] [place] 2022-12-01 00:00 citalopram [facility] [place] 2022-09-07 00:00 aspirin [facility] [place] 2022-09-08 00:00 aspirin [facility] [place] 2022-09-23 00:00 aspirin [facility] [place] 2022-09-26 00:00 aspirin [facility] [place] 2022-10-03 00:00 aspirin [facility] [place] 2022-10-04 00:00 aspirin [facility] [place] 2022-10-20 00:00 aspirin [facility] [place] 2022-10-21 00:00 aspirin [facility] [place] 2022-10-31 00:00 aspirin [facility] [place] 2022-11-01 00:00 aspirin [facility] [place] 2022-11-18 00:00 aspirin [facility] [place] 2022-11-21 00:00 aspirin [facility] [place] 2022-12-01 00:00 aspirin [facility] [place] 2022-09-07 00:00 multivitamin [facility] [place] 2022-09-08 00:00 multivitamin [facility] [place] 2022-09-23 00:00 multivitamin [facility] [place] 2022-09-26 00:00 multivitamin [facility] [place] 2022-10-03 00:00 multivitamin [facility] [place] 2022-10-04 00:00 multivitamin [facility] [place] 2022-10-20 00:00 multivitamin [facility] [place] 2022-10-21 00:00 multivitamin [facility] [place] 2022-10-31 00:00 multivitamin [facility] [place] 2022-11-01 00:00 multivitamin [facility] [place] 2022-11-18 00:00 multivitamin [facility] [place] 2022-11-21 00:00 multivitamin [facility] [place] 2022-12-01 00:00 multivitamin [facility] [place] 2022-09-07 00:00 metoprolol tartrate [facility] [place] 2022-09-08 00:00 metoprolol tartrate [facility] [place] 2022-09-23 00:00 metoprolol tartrate [facility] [place] 2022-09-26 00:00 metoprolol tartrate [facility] [place] 2022-10-03 00:00 metoprolol tartrate [facility] [place] 2022-10-04 00:00 metoprolol tartrate [facility] [place] 2022-10-20 00:00 metoprolol tartrate [facility] [place] 2022-10-21 00:00 metoprolol tartrate [facility] [place] 2022-10-31 00:00 metoprolol tartrate [facility] [place] 2022-11-01 00:00 metoprolol tartrate [facility] [place] 2022-11-18 00:00 metoprolol tartrate [facility] [place] 2022-11-21 00:00 metoprolol tartrate [facility] [place] 2022-12-01 00:00 metoprolol tartrate [facility] [place] 2022-09-07 00:00 multivitamin [facility] [place] 2022-09-08 00:00 multivitamin [facility] [place] 2022-09-23 00:00 multivitamin [facility] [place] 2022-09-26 00:00 multivitamin [facility] [place] 2022-10-03 00:00 multivitamin [facility] [place] 2022-10-04 00:00 multivitamin [facility] [place] 2022-10-20 00:00 multivitamin [facility] [place] 2022-10-21 00:00 multivitamin [facility] [place] 2022-10-31 00:00 multivitamin [facility] [place] 2022-11-01 00:00 multivitamin [facility] [place] 2022-11-18 00:00 multivitamin [facility] [place] 2022-11-21 00:00 multivitamin [facility] [place] 2022-12-01 00:00 multivitamin [facility] [place] 2022-09-07 00:00 aspirin [facility] [place] 2022-09-08 00:00 aspirin [facility] [place] 2022-09-23 00:00 aspirin [facility] [place] 2022-09-26 00:00 aspirin [facility] [place] 2022-10-03 00:00 aspirin [facility] [place] 2022-10-04 00:00 aspirin [facility] [place] 2022-10-20 00:00 aspirin [facility] [place] 2022-10-21 00:00 aspirin [facility] [place] 2022-10-31 00:00 aspirin [facility] [place] 2022-11-01 00:00 aspirin [facility] [place] 2022-11-18 00:00 aspirin [facility] [place] 2022-11-21 00:00 aspirin [facility] [place] 2022-12-01 00:00 aspirin [facility] [place] 2022-09-07 00:00 warfarin [facility] [place] 2022-09-08 00:00 warfarin [facility] [place] 2022-09-23 00:00 warfarin [facility] [place] 2022-09-26 00:00 warfarin [facility] [place] 2022-10-03 00:00 warfarin [facility] [place] 2022-10-04 00:00 warfarin [facility] [place] 2022-10-20 00:00 warfarin [facility] [place] 2022-10-21 00:00 warfarin [facility] [place] 2022-10-31 00:00 warfarin [facility] [place] 2022-11-01 00:00 warfarin [facility] [place] 2022-11-18 00:00 warfarin [facility] [place] 2022-11-21 00:00 warfarin [facility] [place] 2022-12-01 00:00 warfarin [facility] [place] 2022-09-07 00:00 warfarin [facility] [place] 2022-09-08 00:00 warfarin [facility] [place] 2022-09-23 00:00 warfarin [facility] [place] 2022-09-26 00:00 warfarin [facility] [place] 2022-10-03 00:00 warfarin [facility] [place] 2022-10-04 00:00 warfarin [facility] [place] 2022-10-20 00:00 warfarin [facility] [place] 2022-10-21 00:00 warfarin [facility] [place] 2022-10-31 00:00 warfarin [facility] [place] 2022-11-01 00:00 warfarin [facility] [place] 2022-11-18 00:00 warfarin [facility] [place] 2022-11-21 00:00 warfarin [facility] [place] 2022-12-01 00:00 warfarin [facility] [place] 2022-09-07 00:00 metoprolol tartrate [facility] [place] 2022-09-08 00:00 metoprolol tartrate [facility] [place] 2022-09-23 00:00 metoprolol tartrate [facility] [place] 2022-09-26 00:00 metoprolol tartrate [facility] [place] 2022-10-03 00:00 metoprolol tartrate [facility] [place] 2022-10-04 00:00 metoprolol tartrate [facility] [place] 2022-10-20 00:00 metoprolol tartrate [facility] [place] 2022-10-21 00:00 metoprolol tartrate [facility] [place] 2022-10-31 00:00 metoprolol tartrate [facility] [place] 2022-11-01 00:00 metoprolol tartrate [facility] [place] 2022-11-18 00:00 metoprolol tartrate [facility] [place] 2022-11-21 00:00 metoprolol tartrate [facility] [place] 2022-12-01 00:00 metoprolol tartrate [facility] [place] Problems date description facility 2022-09-07 00:00 Osteoarthritis of hip [facility] 2022-09-07 00:00 Other and unspecified [facility] & hyperlipidemia [facility] 2022-09-07 00:00 Morbid obesity [facility] 2022-09-07 00:00 Benign essential hypertension Walk[facility]In [facility] 2022-09-07 00:00 Hyperlipidemia Walk[facility] Clinic [facility] 2022-09-07 00:00 Osteoarthrosis, unspecified whether [facility] Care & generalized or localized, involving Anci [facility] Services [place] pelvic region and thigh 2022-09-07 00:00 Morbid (severe) obesity due to Walk-In Clinic Primary Care & excess calories [facility] 2022-09-07 00:00 Hyperlipidemia, unspecified Walk-In in Primary Care & [facility]illary Services [facility] 2022-09-07 00:00 Essential (primary) hypertension Walk- In [facility] Primary 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 2022-09-08 00:00 Osteoarthritis of hip [facility] & [facility] Services [facility] 2022-09-08 00:00 Other and unspecified [facility] Care & hyperlipidemia Ancillary Services [facility] 2022-09-08 00:00 Morbid obesity [facility] Care & Ancillary Services [facility] 2022-09-08 00:00 Benign essential hypertension [facility] Primary Care & Ancillary Services [facility] 2022-09-08 00:00 Hyperlipidemia [facility] Prim a[facility] Care & Ancillary Services [facility] 2022-09-08 00:00 Osteoarthrosis, unspecified whether [facility] & generalized or localized, involving [facility] [place] pelvic region and thigh 2022-09-08 00:00 Morbid (severe) obesity due to [facility] Primary Care & excess calories Ancillary Services [facility] 2022-09-08 00:00 Hyperlipidemia, unspecified [facility] 2022-09-08 00:00 Essential (primary) hypertension [facility] Primary Care & Ancillary Services [facility] 2022-09-08 00:00 Unilateral primary osteoarthritis, [facility] & [facility] [place] [facility] 2022-09-23 00:00 Osteoarthritis of hip [facility] [place] [facility] 2022-09-23 00:00 Other and unspecified [facility] Care & hyperlipidemia [facility] [place] [facility] 2022-09-23 00:00 Morbid obesity [facility] Care & [facility] 2022-09-23 00:00 Benign essential hypertension [facility] [place] [facility] 2022-09-23 00:00 Hyperlipidemia [facility] Care [facility] [place] [facility] 2022-09-23 00:00 Osteoarthrosis, unspecified whether [facility] & generalized or localized, involving [facility] [place] pelvic region and thigh 2022-09-23 00:00 Morbid (severe) obesity due to [facility] Primary Care & excess calories [facility] [place] [facility] 2022-09-23 00:00 Hyperlipidemia, unspecified [facility] [place] [facility] 2022-09-23 00:00 Essential (primary) hypertension [facility] [place] [facility] 2022-09-23 00:00 Unilateral primary osteoarthritis, [facility] hip [facility] [place] [facility] 2022-09-26 00:00 Osteoarthritis of hip [facility] [place] [facility] 2022-09-26 00:00 Other and unspecified [facility] Care & hyperlipidemia [facility] [place] [facility] 2022-09-26 00:00 Morbid obesity [facility] [place] [facility] 2022-09-26 00:00 Benign essential hypertension [facility] [place] [facility] 2022-09-26 00:00 Hyperlipidemia [facility] [place] [facility] 2022-09-26 00:00 Osteoarthrosis, unspecified whether [facility] & generalized or localized, involving [facility] [place] pelvic region and thigh 2022-09-26 00:00 Morbid (severe) obesity due to [facility] Primary Care & excess calories [facility] [place] [facility] 2022-09-26 00:00 Hyperlipidemia, unspecified [facility] [place] [facility] 2022-09-26 00:00 Essential (primary) hypertension [facility] [place] [facility] 2022-09-26 00:00 Unilateral primary osteoarthritis, [facility] [place] [facility] 2022-10-03 00:00 Osteoarthritis of hip [facility] [place] [facility] 2022-10-03 00:00 Other and unspecified [facility] Care & hyperlipidemia [facility] [place] [facility] 2022-10-03 00:00 Morbid obesity [facility] [place] [facility] 2022-10-03 00:00 Benign essential hypertension [facility] [place] [facility] 2022-10-03 00:00 Hyperlipidemia [facility] [place] [facility] 2022-10-03 00:00 Osteoarthrosis, unspecified whether [facility] & generalized or localized, involving [facility] [place] pelvic region and thigh 2022-10-03 00:00 Morbid (severe) obesity due to [facility] Primary Care & excess calories [facility] [place] [facility] 2022-10-03 00:00 Hyperlipidemia, unspecified [facility] Care & [facility]illary Services [facility] 2022-10-03 00:00 Essential (primary) hypertension [facility] Primary Care & Ancillary Services 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 2022-10-04 00:00 Osteoarthritis of hip [facility] 2022-10-04 00:00 Other and unspecified [facility] Care & hyperlipidemia Ancillary Services [facility] 2022-10-04 00:00 Morbid obesity [facility] Care & [facility] Services [facility] 2022-10-04 00:00 Benign essential hypertension [facility] Primary Care & [facility]illary Services [facility] 2022-10-04 00:00 Hyperlipidemia [facility] Care & [facility]illary Services [facility] 2022-10-04 00:00 Osteoarthrosis, unspecified whether [facility] & generalized or localized, involving [facility] [place] pelvic region and thigh 2022-10-04 00:00 Morbid (severe) obesity due to [facility] Primary Care & excess calories Ancillary Services [facility] 2022-10-04 00:00 Hyperlipidemia, unspecified [facility] [employer] Primary Care & Ancillary Services [facility] 2022-10-04 00:00 Essential (primary) hypertension [facility] Primary Care & [facility]illary Services 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 2022-10-20 00:00 Osteoarthritis of hip [facility] Care & [facility] Services [facility] 2022-10-20 00:00 Other and unspecified [facility] Care & hyperlipidemia Ancillary Services [facility] 2022-10-20 00:00 Morbid obesity [facility] Care & [facility] Services [facility] 2022-10-20 00:00 Benign essential hypertension [facility] Primary Care & [facility] Services [facility] 2022-10-20 00:00 Hyperlipidemia [facility] Care & Ancillary Services [facility] 2022-10-20 00:00 Osteoarthrosis, unspecified whether [facility] & generalized or localized, involving [facility] [place] pelvic region and thigh 2022-10-20 00:00 Morbid (severe) obesity due to [facility] Primary Care & excess calories Ancillary Services [facility] 2022-10-20 00:00 Hyperlipidemia, unspecified [facility] Care & [facility]illary Services [facility] 2022-10-20 00:00 Essential (primary) hypertension [facility] Primary Care & [facility]illary Services [facility] 2022-10-20 00:00 Unilateral primary osteoarthritis, [facility] & left hip [facility] 2022-10-21 00:00 Osteoarthritis of hip [facility] & [facility] Services [facility] 2022-10-21 00:00 Other and unspecified [facility] Care & hyperlipidemia Ancillary Services [facility] 2022-10-21 00:00 Morbid obesity [facility] & [facility] Services [facility] 2022-10-21 00:00 Benign essential hypertension [facility] Primary [facility] & [facility] Services [facility] 2022-10-21 00:00 Hyperlipidemia [facility] Care & [facility] Services [facility] 2022-10-21 00:00 Osteoarthrosis, unspecified whether [facility] [place] pelvic region and thigh 2022-10-21 00:00 Morbid (severe) obesity due to [facility] Primary Care & excess calories Ancillary Services [facility] 2022-10-21 00:00 Hyperlipidemia, unspecified [facility] Primary Care & [facility] Services [facility] 2022-10-21 00:00 Essential (primary) hypertension [facility] Primary Care & [facility]illary Services 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 [facility] [place] [facility] 2022-10-31 00:00 Osteoarthritis of hip [facility] [place] [facility] 2022-10-31 00:00 Other and unspecified [facility] Care & hyperlipidemia [facility] [place] [facility] 2022-10-31 00:00 Morbid obesity [facility] [place] [facility] 2022-10-31 00:00 Benign essential hypertension [facility] [place] [facility] 2022-10-31 00:00 Hyperlipidemia [facility] & [facility] 2022-10-31 00:00 Osteoarthrosis, unspecified whether [facility] & generalized or localized, involving [facility] [place] pelvic region and thigh 2022-10-31 00:00 Morbid (severe) obesity due to [facility] Primary Care & excess calories [facility] [place] [facility] 2022-10-31 00:00 Hyperlipidemia, unspecified [facility] [place] [facility] 2022-10-31 00:00 Essential (primary) hypertension [facility] [facility] 2022-10-31 00:00 Unilateral primary osteoarthritis, [facility]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 [facility] [place] [facility] 2022-11-01 00:00 Osteoarthritis of hip [facility] [place] [facility] 2022-11-01 00:00 Other and unspecified [facility] Care & hyperlipidemia [facility] [place] [facility] 2022-11-01 00:00 Morbid obesity [facility] [place] [facility] 2022-11-01 00:00 Benign essential hypertension [facility] [place] [facility] 2022-11-01 00:00 Hyperlipidemia [facility] & [facility] [place] [facility] 2022-11-01 00:00 Osteoarthrosis, unspecified whether [facility] & generalized or localized, involving [facility] [place] pelvic region and thigh 2022-11-01 00:00 Morbid (severe) obesity due to [facility] Primary Care & excess calories [facility] [place] [facility] 2022-11-01 00:00 Hyperlipidemia, unspecified [facility] [place] [facility] 2022-11-01 00:00 Essential (primary) hypertension [facility] [place] [facility] 2022-11-01 00:00 Unilateral primary osteoarthritis, [facility] & left hip [facility] [place] [facility] 2022-11-18 00:00 Osteoarthritis of hip [facility] [place] [facility] 2022-11-18 00:00 Other and unspecified [facility] Care & hyperlipidemia [facility] [place] [facility] 2022-11-18 00:00 Morbid obesity [facility] [place] [facility] 2022-11-18 00:00 Benign essential hypertension [facility] [place] [facility] 2022-11-18 00:00 Hyperlipidemia [facility] & [facility] 2022-11-18 00:00 Osteoarthrosis, unspecified whether [facility] & generalized or localized, involving [facility] [place] pelvic region and thigh 2022-11-18 00:00 Morbid (severe) obesity due to [facility] Primary Care & excess calories [facility] [place] [facility] 2022-11-18 00:00 Hyperlipidemia, unspecified [facility] [place] [facility] 2022-11-18 00:00 Essential (primary) hypertension [facility] [place] [facility] 2022-11-18 00:00 Unilateral primary osteoarthritis, [facility] & left hip [facility] [place] [facility] 2022-11-21 00:00 Osteoarthritis of hip [facility] [place] [facility] 2022-11-21 00:00 Other and unspecified [facility] Care & hyperlipidemia [facility] [place] [facility] 2022-11-21 00:00 Morbid obesity [facility] & [facility] [place] [facility] 2022-11-21 00:00 Benign essential hypertension [facility] [place] [facility] 2022-11-21 00:00 Hyperlipidemia [facility] [place] [facility] 2022-11-21 00:00 Osteoarthrosis, unspecified whether [facility] & generalized or localized, involving [facility] [place] pelvic region and thigh 2022-11-21 00:00 Morbid (severe) obesity due to [facility] Primary Care & excess calories [facility] [place] [facility] 2022-11-21 00:00 Hyperlipidemia, unspecified [facility] [place] [facility] 2022-11-21 00:00 Essential (primary) hypertension [facility] [place] [facility] 2022-11-21 00:00 Unilateral primary osteoarthritis, [facility] & left hip [facility] [place] [facility] 2022-12-01 00:00 Osteoarthritis of hip [facility] 2022-12-01 00:00 Other and unspecified [facility] Care & hyperlipidemia [facility] 2022-12-01 00:00 Morbid obesity [facility] 2022-12-01 00:00 Benign essential hypertension [facility] 2022-12-01 00:00 Hyperlipidemia [facility] Care & Anc[facility] Services [facility] 2022-12-01 00:00 Osteoarthrosis, unspecified whether [facility] & generalized or localized, involving [facility] [place] pelvic region and thigh 2022-12-01 00:00 Morbid (severe) obesity due to [facility] Primary Care & excess calories [facility] 2022-12-01 00:00 Hyperlipidemia, unspecified [facility] in [facility] Care & [facility] 2022-12-01 00:00 Essential (primary) hypertension [facility] Primary Care & [facility]illary Services 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 2022-10-03 00:00 ANTICOAG MGMT PT [facility] 2022-10-20 00:00 ANTICOAG MGMT PT [facility] Care & Ancillary Services [facility] 2022-10-31 00:00 ANTICOAG MGMT PT [facility] Primary Care & Ancillary Services [facility] 2022-11-18 00:00 ANTICOAG MGMT PT [facility] Primary Care & Ancillary Services [facility] 2022-12-01 00:00 ANTICOAG MGMT PT [facility] [place] [facility] Results/Labs test date author facility value unit interpret ation Result panel 1 (unknown) (no date) (unknown) [facility] (no value) (units ([facility] nown[facility] Primary unknown) [facility] [place] Result panel 2 (unknown) (no date) (unknown) [facility] (no value) (units [facility] Primary unknown) [facility] [place] Result panel 3 (unknown) (no date) (unknown) [facility] (no value) (units ([facility]own[facility] Clinic Primary unknown) [facility] [place] Result panel 4 (unknown) (no date) (unknown) [facility] (no value) (units ([facility] nown[facility] Clinic Primary unknown) [facility] [place] Result panel 5 (unknown) (no date) (unknown) [facility] (no value) (units ([facility] nown[facility] Clinic Primary unknown) [facility] [place] Result panel 6 (unknown) (no date) (unknown) [facility] (no value) (units ([facility] nown[facility] Clinic Primary unknown) [facility] [place] Result panel 7 (unknown) (no date) (unknown) [facility] (no value) (units ([facility] nown[facility] Clinic Primary unknown) [facility] [place] Result panel 8 (unknown) (no date) (unknown) [facility] (no value) (units ([facility] nown[facility] Clinic Primary unknown) [facility] [place] Result panel 9 (unknown) (no date) (unknown) [facility] (no value) (units ([facility] nown[facility] Clinic Primary unknown) [facility] [place] Result panel 10 (unknown) (no date) (unknown) [facility] (no value) (units ([facility] nown[facility] Clinic Primary unknown) [facility] [place] Result panel 11 (unknown) (no date) (unknown) [facility] (no value) (units ([facility] nown) Clinic Primary unknown) [facility] [place] Result panel 12 (unknown) (no date) (unknown) [facility] (no value) (units ([facility] nown) Clinic Primary unknown) [facility] [place] Result panel 13 (unknown) (no date) (unknown) [facility] (no value) (units ([facility] nown) Clinic Primary unknown) [facility] [place] Result panel 14 (unknown) (no date) (unknown) [facility] (no value) (units ([facility] nown) Clinic Primary unknown) [facility] [place] Result panel 15 (unknown) (no date) (unknown) [facility] (no value) (units ([facility] nown) Clinic Primary unknown) [facility] [place] Result panel 16 (unknown) (no date) (unknown) [facility] (no value) (units ([facility] nown) Clinic Primary unknown) [facility] [place] Result panel 17 (unknown) (no date) (unknown) [facility] (no value) (units ([facility] nown[facility] Clinic Primary unknown) [facility] [place] Result panel 18 (unknown) (no date) (unknown) Walk-[facility] (no value) (units ([facility] nown[facility] Clinic Primary unknown) [facility] [place] Result panel 19 (unknown) (no date) (unknown) Walk-In (no value) (units ([facility] nown[facility] Clinic Primary unknown) [facility] [place] Result panel 20 (unknown) (no date) (unknown) Walk-In (no value) (units ([facility] nown[facility] Clinic Primary unknown) [facility] [place] Social History No information. Vital Signs No information.
[2022-12-04 10:21] LABS: BASOPHILS # (AUTO) 0.1 10^3/uL (0.0-0.1); BASOPHILS % (AUTO) 1.2 %; EOSINOPHILS # (AUTO) 0.2 10^3/uL (0.0-0.7); EOSINOPHILS % (AUTO) 3.1 %; HCT - HEMATOCRIT 39.7 % (37.0-47.0); HGB - HEMOGLOBIN 12.2 g/dL (12.0-16.0); LYMPHOCYTES # (AUTO) 0.9 10^3/uL (1.5-3.5); LYMPHOCYTES % (AUTO) 17.2 %; MEAN CORPUSCULAR HGB CONC 30.7 g/dL (32.0-36.0); MEAN CORPUSCULAR VOLUME 84.6 fL (81.0-99.0); MEAN PLATELET VOLUME 9.8 fL (7.9-10.8); MONOCYTES # (AUTO) 0.5 10^3/uL (0.0-1.0); MONOCYTES % (AUTO) 10.1 %; NEUTROPHILS # (AUTO) 3.5 10^3/uL (1.5-6.6); NEUTROPHILS % (AUTO) 68.2 %; PLT - PLATELET COUNT 264 10^3/uL (130-450); RED BLOOD COUNT 4.69 10^6/uL (4.20-5.40); RED CELL DISTRIBUTION WIDTH 15.9 % (12.0-15.0); WHITE BLOOD COUNT 5.1 x10^3/uL (4.8-10.8)
[2022-12-04 10:39] LABS: ALBUMIN/GLOBULIN RATIO 1.1 (1.0-2.2); BILIRUBIN,TOTAL 0.6 mg/dL (0.2-1.0); CALCIUM 9.5 mg/dL (8.5-10.3); CREATININE 0.7 mg/dL (0.4-1.0); TOTAL PROTEIN 7.5 g/dL (6.7-8.2)
--- NOTE | 2022-12-04 10:41 | XRAY Report ---
PROCEDURE: Chest 1 View X-Ray INDICATIONS: Chest pain TECHNIQUE: One view of the chest was acquired. COMPARISON: None. FINDINGS: Surgical changes and devices: None. Lungs and pleura: No pleural effusions or pneumothorax. Lungs are clear. Mediastinum: Mediastinal contours appear normal. Heart size is normal. Bones and chest wall: No suspicious bony lesions. Age-appropriate degenerative changes are seen. Overlying soft tissues appear unremarkable. IMPRESSION: Normal portable chest for age. Reviewed by: Ayo Noriega MD on 12/04/2022 9:39 AM [facility] Approved by: Ayo Noriega MD on 12/04/2022 9:39 AM [facility] Station ID: [id number]
--- NOTE | 2022-12-04 10:47 | ED Physician Documentation ---
History of Present Illness - Stated complaint Stated Complaint: BP/PULSE VARIATIONS - Chief complaint Chief Complaint: Cardiac - Additonal information Additional information: Patient is a 72-year-old female presenting to the emergency department with chief complaint of heart palpitations. Reports felt pounding in her chest at approximately 6 AM. Denies associated chest pain. States has felt this way multiple times in the past. Reports that she follows with cardiology at [facility] and states that she has had cardiac ablations done for irregular cardiac rhythms. Reports that she currently takes Coumadin and that she has been instructed by her loader demolder to take a 25 mg metoprolol when she has sensations of palpitations. States that she did not take this medication because "I wanted to come in clean so to speak". Review of Systems Constitutional: denies: Fever Eyes: denies: Loss of vision Ears: denies: Loss of hearing Nose: denies: Rhinorrhea / runny nose Throat: denies: Dental pain / toothache Cardiac: reports: Palpitations. 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 PRESS FEEDER: None : None HEENT: None Psych: None Musculoskeletal: None Derm: None - Past Surgical History Past Surgical History: Yes General: Cholecystectomy, Appendectomy Ortho: Hip replacement /LITHOGRAPHIC PRESS FEEDER: section, Tubal ligation Cardiovascular: Other - Present Medications Home Medications: Ambulatory Orders Medication Instructions Recorded Confirmed Lisinopril 40 mg PO DAILY 10/03/14 12/04/22 Multivitamin [Multivitamins] 1 each PO DAILY 10/03/14 12/04/22 Cholecalciferol [Vitamin D3] 25 mcg PO DAILY 08/17/21 05/09/22 Ferrous Sulfate 325 mg PO DAILY 08/17/21 05/09/22 Metoprolol Succinate [Toprol Xl] 25 mg PO DAILY 05/30/22 12/04/22 Warfarin [Coumadin] 5 mg PO DAILY 05/30/22 05/30/22 dilTIAZem HCL [Diltiazem 24Hr ER 120 mg PO DAILY 05/30/22 12/04/22 (Xr)] - Allergies Allergies/Adverse Reactions: Allergies Allergy/AdvReac Type Severity Reaction Status Date / Time No Known Drug Allergies Allergy Verified 12/04/22 10:00 - Social History Does the pt smoke?: No Smoking Status: Never smoker Does the pt drink ETOH?: No Does the pt have substance abuse?: No - Immunizations Immunizations are current?: Yes PD ED PE NORMAL - Vitals Vital signs reviewed: Yes - General General: Alert and oriented X 3, No acute distress, Well developed/nourished - HEENT HEENT: Atraumatic, PERRL, EOMI, Ears normal, Moist mucous membranes, Pharynx benign - Neck Neck: Supple, no meningeal sign, No bony TTP, No adenopathy, Thyroid normal, No JVD - Cardiac Cardiac: No murmur, No rub, Strong equal pulses, Other (Regular bigeminy or trigeminy pattern) - Respiratory Respiratory: No respiratory distress, Clear bilaterally - Abdomen Abdomen: Normal bowel sounds, Non tender - Female Female : Deferred - Rectal Rectal: Deferred - Derm Derm: Normal color - Extremities Extremities: No deformity, No edema Results - Vitals Vitals: Vital Signs - 24 hr 12/04/22 12/04/22 09:51 10:19 Temperature 36.5 C Heart Rate 79 79 Respiratory 16 16 Rate Blood Pressure 150/76 H 145/85 H O2 Saturation 99 100 Oxygen O2 Source [] Room air O2 Source [] Room air O2 Source Room air - EKG (time done) 0958 Rate: Rate (enter#) (79) Rhythm: NSR [place]: Normal Intervals: Normal [place], LBBB, Other (Premature atrial complexes). No: Prolonged QT Ischemia: Non specific changes Compare to prior EKG: Changed from prior EKG (Sinus rhythm replaces atrial fibrillation for most previous 05/30/2022.) - Labs Labs: Laboratory Tests 12/04/22 12/04/22 12/04/22 10:15 10:15 10:15 WBC 5.1 RBC 4.69 Hgb 12.2 Hct 39.7 MCV 84.6 MCH 26.0 L MCHC 30.7 L RDW 15.9 H Plt Count 264 MPV 9.8 Neut # (Auto) 3.5 Lymph # (Auto) 0.9 L [place] # (Auto) 0.5 Eos # (Auto) 0.2 Baso # (Auto) 0.1 Absolute Nucleated RBC 0.00 Nucleated RBC % 0.0 Sodium 138 Potassium 4.0 Chloride 101 Carbon Dioxide 27 Anion Gap 10.0 BUN 14 Creatinine 0.7 Estimated GFR (MDRD) 82 L Glucose 100 Calcium 9.5 Total Bilirubin 0.6 AST 22 ALT 16 Alkaline Phosphatase 82 Troponin I High Sens 5.5 Total Protein 7.5 Albumin 4.0 Globulin 3.5 Albumin/Globulin Ratio 1.1 Lipase 26 PD Medical Decision Making - ED course Complexity details: reviewed results, re-evaluated patient, considered differential, d/w patient Reviewed Lab Results: Labs reviewed. Negative for any significant elevation in troponin or electrolyte abnormality. Social Determinants of Health: None Drug Therapy Requiring Monitoring for Toxicity: None Procedural Risk Factors Specific to Patient: None ED course: Patient is 72-year-old female presenting to the emergency department with sensation of palpitations. Reported multiple episodes similar to this in the past. Has a history of atrial fibrillation and has undergone cardiac ablation. Reports that she has been instructed by her loader demolder to take metoprolol whenever she has a sensation of palpitations however she did not this morning. She denied any chest pain or shortness of breath that would be of imminent concern for cardiac ischemia. Her EKG showed a left bundle branch morphology with frequent premature atrial complexes. Labs obtained were all within normal limits or nonactionable including a negative troponin. She reported being asymptomatic on my evaluation and expressed frustration with her decision to come to the emergency department. I did order for dose of the metoprolol that is recommended by her loader demolder for symptoms like this. At this time there does not appear to be an imminent life threat and I will discharge her with instructions to follow-up with her primary care doctor and loader demolder. Final clinical impression: Premature atrial complexes. Departure - Departure Disposition: 01 Home, Self Care Clinical Impression: Premature atrial complex Instructions: ED Palpitations Comments: Thank you for allowing us to care for you today would be health. Today in the emergency department you were evaluated for any possible life-thre atening medical emergency. The lab work performed here today did not show any indications of heart injury or severe electrolyte abnormality. You do appear to be having what are known as frequent atrial premature complexes. This can give the sensation of palpitations. It is important that you follow-up with your primary care doctor concerning these symptoms. If it anytime you develop any new or worsening symptoms such as shortness of breath or chest pain please return to the emergency department immediately for further evaluation and treatment.
[2022-12-04] MEDS ORDERED: METOPROLOL TARTRATE 50 MG TABLET PO STA (10:52)
[2022-12-04 11:31] VITALS: BP 151/70
== END 2022-12-04 11:40 | disposition home or self-care (01) ==
LOC: ED 09:47
DX: I49.1 Atrial premature depolarization (principal)
CPT/HCPCS: 36415; 71045; 80053; 83690; 84484; 85025; 93005; 99284; A9270

== ENCOUNTER 2022-12-21 11:02 | Outpatient (CLI) | payer MEDICARE, OTHER ==
--- NOTE | 2022-12-22 17:00 | Mammography Report ---
BILATERAL DIGITAL SCREENING MAMMOGRAM 3D/2D: 12/21/2022 CLINICAL: Routine screening. Comparison is made to exams dated: 11/24/2020 mammogram, 04/04/2018 mammogram, and 03/17/2017 mammogram - [facility]. There are scattered areas of fibroglandular density in both breasts (category b / 25%-50% glandular t issue). There are benign vascular calcifications in both breasts. No significant masses, calcifications, or other findings are seen in either breast. There has been no significant interval change. IMPRESSION: BENIGN There is no mammographic evidence of malignancy. A 1 year screening mammogram is recommended. Based on the Tyrer Cuzick model (a risk assessment model) the patients lifetime risk is 4.0% and her 10 year risk is 3.3%. According to the ACR, ACS, and NCCN guidelines, an annual breast MRI exam urmila g with mammogram is recommended if the patients lifetime risk is 20% or greater. This exam was interpreted at Station ID: [id number]. NOTE: For mammograms, a report in lay terms will be sent to the patient. Approximately 15% of breast malignancies will not be visualized mammographically. In the management of a palpable breast mass, a negative mammogram must not discourage biopsy of a clinically suspicious lesion. Electronically Signed By: William solorio/pbalo:12/21/2022 13:45:33 letter sent: No_Letter ACR BI-RADS Category 2: Benign Finding(s) 3342F PARENCHYMAL PATTERN: (A) - The breast(s) demonstrate(s) scattered fibroglandular densities. BI-RADS CATEGORY: (2) - 2 Mammogram 20231222 1 year screening LATERALITY: (B)
== END 2022-12-21 11:03 | disposition home or self-care (01) ==
LOC: DI.S 11:02
DX: Z12.31 Encounter for screening mammogram for malignant neoplasm of breast (principal); Z79.01 Long term (current) use of anticoagulants; I48.91 Unspecified atrial fibrillation
CPT/HCPCS: 36416; 85610

== ENCOUNTER 2023-01-20 09:27 | Outpatient (CLI) | payer MEDICARE, OTHER | END 2023-01-20 09:28 | disposition home or self-care (01) | LOC: LAB.S 09:27 | PROVIDERS: ATTEND Registered Nurse | DX: Z79.01 Long term (current) use of anticoagulants (principal); I48.91 Unspecified atrial fibrillation | CPT/HCPCS: 36416; 85610 ==

== ENCOUNTER 2023-02-10 08:14 | Outpatient (CLI) | payer MEDICARE, OTHER | END 2023-02-10 08:15 | disposition home or self-care (01) | LOC: LAB.S 08:14 | PROVIDERS: ATTEND Registered Nurse | DX: Z79.01 Long term (current) use of anticoagulants (principal); I48.91 Unspecified atrial fibrillation | CPT/HCPCS: 36416; 85610 ==

== ENCOUNTER 2023-03-10 09:45 | Outpatient (CLI) | payer MEDICARE, OTHER | END 2023-03-10 09:46 | disposition home or self-care (01) | LOC: LAB.S 09:45 | PROVIDERS: ATTEND Registered Nurse | DX: Z79.01 Long term (current) use of anticoagulants (principal); I48.91 Unspecified atrial fibrillation | CPT/HCPCS: 36416; 85610 ==

== ENCOUNTER 2023-04-13 18:37 | Outpatient (CLI) | payer MEDICARE, OTHER | END 2023-04-13 18:38 | disposition critical access hospital (66) | LOC: EMS 18:37 | DX: S00.03XA Contusion of scalp, initial encounter (principal); R55 Syncope and collapse; R42 Dizziness and giddiness; R68.84 Jaw pain; W18.39XA Other fall on same level, initial encounter; Y93.01 Activity, walking, marching and hiking; Y92.009 Unspecified place in unspecified non-institutional (private) residence as the place of occurrence of the external cause; I10 Essential (primary) hypertension; Z79.01 Long term (current) use of anticoagulants | CPT/HCPCS: A0425; A0429 ==

== ENCOUNTER 2023-04-13 19:14 | Emergency (ER) | payer MEDICARE, OTHER ==
--- NOTE | 2023-04-13 19:29 | ED Physician Documentation ---
PD HPI SYNCOPE - Stated complaint Stated Complaint: SYNCOPE - Chief complaint Chief Complaint: Trauma Hd/Nk - History obtained from History obtained from: Patient - History of Present Illness Witnessed: Witnessed Timing - onset: How many hours ago (1) Duration: Seconds (30-60 seconds) Injury occurred: Fell Pain level max: 3 Pain level now: 1 - Additional information Additional information: 72-year-old female states that she had a syncopal event today. She states that she was walking when she felt lightheaded, dizzy and "passed out." She has passed out several times. She states that usually it occurs when she goes into atrial fibrillation. She is on warfarin and did strike the back of her head. She states last time she passed out was a few months ago. She states that she has had extensive work-up with no other significant causes found. She is having pain to the back of the head. No fevers. No chills. No vomiting. No seizure activity. No chest pain. No shortness of breath. No hip pain. No knee pain. No recent travel. No leg swelling. No chest pain, palpitations or pleuritic chest pain. Review of Systems Constitutional: denies: Fever, Chills Nose: denies: Rhinorrhea / runny nose Cardiac: denies: Chest pain / pressure, Palpitations GI: denies: Nausea, Vomiting, Diarrhea Musculoskeletal: denies: Neck pain, Back pain Neurologic: denies: Headache PD PAST MEDICAL HISTORY - Past Medical History Past Medical History: Yes Cardiovascular: Hypertension, Atrial fibrillation, Arrhythmia Respiratory: None Neuro: None Endocrine/Autoimmune: None GI: None EMAIL DEVELOPER: None : None HEENT: None Psych: None Musculoskeletal: None Derm: None - Past Surgical History Past Surgical History: Yes General: Cholecystectomy, Appendectomy Ortho: Hip replacement /EMAIL DEVELOPER: section, Tubal ligation Cardiovascular: Other - Present Medications Home Medications: Ambulatory Orders Medication Instructions Recorded Confirmed Lisinopril 40 mg PO DAILY 10/03/14 12/04/22 Multivitamin [Multivitamins] 1 each PO DAILY 10/03/14 12/04/22 Cholecalciferol [Vitamin D3] 25 mcg PO DAILY 08/17/21 05/09/22 Ferrous Sulfate 325 mg PO DAILY 08/17/21 05/09/22 Metoprolol Succinate [Toprol Xl] 25 mg PO DAILY 05/30/22 12/04/22 Warfarin [Coumadin] 5 mg PO DAILY 05/30/22 05/30/22 dilTIAZem HCL [Diltiazem 24Hr ER 120 mg PO DAILY 05/30/22 12/04/22 (Xr)] - Allergies Allergies/Adverse Reactions: Allergies Allergy/AdvReac Type Severity Reaction Status Date / Time No Known Drug Allergies Allergy Verified 04/13/23 19:21 - Social History Does the pt smoke?: No Smoking Status: Never smoker Does the pt drink ETOH?: No Does the pt have substance abuse?: No - Immunizations Immunizations are current?: Yes PD ED PE NORMAL - Vitals Vital signs reviewed: Yes - General General: Alert and oriented X 3, No acute distress - HEENT HEENT: PERRL, Moist mucous membranes, Pharynx benign, Other (Occipital scalp hematoma.) - Neck Neck: Supple, no meningeal sign, No bony TTP - Cardiac Cardiac: RRR, Strong equal pulses - Respiratory Respiratory: No respiratory distress, Clear bilaterally - Abdomen Abdomen: Soft, Non tender, Non distended - Back Back: No CVA TTP, No spinal TTP - Derm Derm: Warm and dry, No rash - Extremities Extremities: No deformity, No tenderness to palpate, Normal ROM s pain - Neuro Neuro: Alert and oriented X 3, stations superintendent 2-12 intact, No motor deficit, No sensory deficit, Normal speech Eye Opening: Spontaneous Motor: Obeys Commands Verbal: Oriented GCS Score: 15 - Psych Psych: Normal mood, Normal affect Results - Vitals Vitals: Vital Signs - 24 hr 04/13/23 04/13/23 19:17 21:18 Temperature 37.0 C Heart Rate 82 73 Respiratory 16 16 Rate Blood Pressure 132/89 H 153/74 H O2 Saturation 100 97 Oxygen O2 Source [] Room air O2 Source [] Room air O2 Source Room air - EKG (time done) 1916 EKG releavant findings:: EKG personally interpreted by author of this note. Relevant findings are: Rate: Rate (enter#) (75) Rhythm: NSR, Other (PAC) [place]: Normal Intervals: Normal [place], Wide QRS - Labs Labs: Laboratory Tests 04/13/23 04/13/23 04/13/23 20:18 20:18 20:18 WBC 8.2 RBC 4.69 Hgb 13.7 Hct 42.0 MCV 89.6 MCH 29.2 MCHC 32.6 RDW 14.3 Plt Count 245 MPV 9.9 Neut # (Auto) 6.6 Lymph # (Auto) 0.8 L [place] # (Auto) 0.6 Eos # (Auto) 0.1 Baso # (Auto) 0.1 Absolute Nucleated RBC 0.00 Nucleated RBC % 0.0 PT 25.1 H INR 2.4 H Sodium 139 Potassium 3.7 Chloride 107 Carbon Dioxide 28 Anion Gap 4.0 L BUN 15 Creatinine 0.7 Estimated GFR (MDRD) 82 L Glucose 111 H Calcium 8.9 Phosphorus 2.2 L Magnesium 1.8 Total Bilirubin 0.6 AST 28 ALT 20 Alkaline Phosphatase 83 Troponin I High Sens Total Protein 7.4 Albumin 3.9 Globulin 3.5 Albumin/Globulin Ratio 1.1 Lipase 27 04/13/23 20:18 WBC RBC Hgb Hct MCV MCH MCHC RDW Plt Count MPV Neut # (Auto) Lymph # (Auto) [place] # (Auto) Eos # (Auto) Baso # (Auto) Absolute Nucleated RBC Nucleated RBC % PT INR Sodium Potassium Chloride Carbon Dioxide Anion Gap BUN Creatinine Estimated GFR (MDRD) Glucose Calcium Phosphorus Magnesium Total Bilirubin AST ALT Alkaline Phosphatase Troponin I High Sens 7.8 Total Protein Albumin Globulin Albumin/Globulin Ratio Lipase - Rads (name of study) Head CT Relevant Findings:: Final report received, See rad report Chest x-ray Relevant Findings:: Final report received, See rad report Cervical spine CT Relevant Findings:: Final report received, See rad report PD Medical Decision Making - ED course Complexity details: reviewed results, re-evaluated patient, considered differential (No ST elevation [place], no aortic dissection, no PE, no tension p neumothorax, no aortic aneurysm), d/w patient ED course: 72-year-old female presents to the emergency department after a syncopal episode today. She has a longstanding history of syncope. Has been worked up multiple times. Asymptomatic here. Negative head CT. Patient did strike her head and does take warfarin. Negative cervical spine CT. No acute findings on labor atory testing, EKG, telemetry. Declines anything for pain. No lacerations. Does not wish to stay in the hospital for telemetry monitoring. We will have her follow-up with her doctor for further care. Ambulating without any difficulty. GCS 15. No focal neurological deficits. Patient counseled regarding signs and symptoms for which I believe and urgent re-evaluation would be necessary. Patient with good understanding of and agreement to plan and is comfortable going home at this time This document was made in part using voice recognition software. While efforts are made to proofread this document, sound alike and grammatical errors may occur. Departure - Departure Disposition: 01 Home, Self Care Clinical Impression: Adequate anticoagulation on anticoagulant therapy Syncope Qualifiers: Syncope type: unspecified Qualified Code(s): R55 - Syncope and collapse Closed head injury Qualifiers: Encounter type: initial encounter Qualified Code(s): S09.90XA - Unspecified injury of head, initial encounter Scalp hematoma Qualifiers: Encounter type: initial encounter Qualified Code(s): S00.03XA - Contusion of scalp, initial encounter Condition: Good Instructions: ED Hematoma Follow-Up: Sandy Guzman ARNP [Primary Care Provider] - Within 1 week Comments: Please follow-up with your doctor for further care. There are no acute findings on your head CT, cervical spine CT, EKG or laboratory testing. You do have a small hematoma on the back of your head, applying pressure and ice will help to decrease the swelling and pain. Because you are on warfarin this may bleed longer than usual. Please return if you worsen including worsening headaches, vomiting, seizures or other new or worrisome symptoms. Discharge Date/Time: 04/13/23 21:22
--- OUTSIDE RECORDS SUMMARY | 2023-04-13 19:58 | EXTERNAL MEDICAL SUMMARY RPT | Continuity of Care Document ---
Author Name Unknown Address [address] [place] [address] Phone Organization [facility] Address [address] [place] [address] Phone Care Team Providers Care Arbitrator Name Role Phone Unavailable Unavailable Unavailable Sandy Carpenter Unavailable Unavailable Medications date description facility 2023-01-20 00:00 [facility] 2023-01-21 00[facility]00 aspirin [facility] 2023-01-23 00:00 aspirin [facility] 2023-02-10 00:00 aspirin [facility] 2023-02-12 00:00 aspirin [facility] 2023-02-13 00:00 aspirin [facility] [place] 2023-03-10 00:00 aspirin [facility] [place] 2023-03-12 00:00 aspirin [facility] [place] 2023-03-13 00:00 aspirin [facility] 2023-03-15 00:00 aspirin [facility] [place] 2023-03-14 00:00 metoprolol succinate [facility] 2023-03-15 00:00 metoprolol succinate [facility] 2023-03-14 00:00 lisinopril [facility] 2023-03-15 00:00 lisinopril [facility] 2023-01-20 00:00 multivitamin [facility] 2023-01-21 00:00 multivitamin [facility] 2023-01-23 00:00 multivitamin [facility] [place] 2023-02-10 00:00 multivitamin [facility] [place] 2023-02-12 00:00 multivitamin [facility] [place] 2023-02-13 00:00 multivitamin [facility] [place] 2023-03-10 00:00 multivitamin [facility] [place] 2023-03-12 00:00 multivitamin [facility] [place] 2023-03-13 00:00 multivitamin [facility] [place] 2023-03-15 00:00 multivitamin [facility] [place] 2023-01-20 00:00 aspirin [facility] [place] 2023-01-21 00:00 aspirin [facility] [place] 2023-01-23 00:00 aspirin [facility] [place] 2023-02-10 00:00 aspirin [facility] [place] 2023-02-12 00:00 aspirin [facility] [place] 2023-02-13 00:00 aspirin [facility] [place] 2023-03-10 00:00 aspirin [facility] [place] 2023-03-12 00:00 aspirin [facility] [place] 2023-03-13 00:00 aspirin [facility] [place] 2023-03-15 00:00 aspirin [facility] [place] 2023-03-14 00:00 lisinopril [facility] [place] 2023-03-15 00:00 lisinopril [facility] [place] 2023-01-20 00:00 warfarin [facility] [place] 2023-01-21 00:00 warfarin [facility] [place] 2023-01-23 00:00 warfarin [facility] [place] 2023-02-10 00:00 warfarin [facility] [place] 2023-02-12 00:00 warfarin [facility] [place] 2023-02-13 00:00 warfarin [facility] [place] 2023-03-10 00:00 warfarin [facility] [place] 2023-03-12 00:00 warfarin [facility] [place] 2023-03-13 00:00 warfarin [facility] [place] 2023-03-15 00:00 warfarin [facility] [place] 2023-03-14 00:00 lisinopril [facility] [place] 2023-03-15 00:00 lisinopril [facility] [place] 2023-01-20 00:00 citalopram [facility] [place] 2023-01-21 00:00 citalopram [facility] [place] 2023-01-23 00:00 citalopram [facility] [place] 2023-02-10 00:00 citalopram [facility] [place] 2023-02-12 00:00 citalopram [facility] [place] 2023-02-13 00:00 citalopram [facility] [place] 2023-03-10 00:00 citalopram [facility] [place] 2023-03-12 00:00 citalopram [facility] [place] 2023-03-13 00:00 citalopram [facility] [place] 2023-03-15 00:00 citalopram [facility] [place] 2023-03-14 00:00 metoprolol succinate [facility] [place] 2023-03-15 00:00 metoprolol succinate [facility] [place] 2023-01-20 00:00 metoprolol tartrate [facility] [place] 2023-01-21 00:00 metoprolol tartrate [facility] [place] 2023-01-23 00:00 metoprolol tartrate [facility] [place] 2023-02-10 00:00 metoprolol tartrate [facility] [place] 2023-02-12 00:00 metoprolol tartrate [facility] [place] 2023-02-13 00:00 metoprolol tartrate [facility] [place] 2023-03-10 00:00 metoprolol tartrate [facility] [place] 2023-03-12 00:00 metoprolol tartrate [facility] [place] 2023-03-13 00:00 metoprolol tartrate [facility] [place] 2023-03-15 00:00 metoprolol tartrate [facility] [place] 2023-03-14 00:00 diltiazem hcl [facility] [place] 2023-03-15 00:00 diltiazem hcl [facility] [place] 2023-03-14 00:00 lisinopril [facility] [place] 2023-03-15 00:00 lisinopril [facility] [place] 2023-01-20 00:00 warfarin [facility] [place] 2023-01-21 00:00 warfarin [facility] [place] 2023-01-23 00:00 warfarin [facility] [place] 2023-02-10 00:00 warfarin [facility] [place] 2023-02-12 00:00 warfarin [facility] [place] 2023-02-13 00:00 warfarin [facility] [place] 2023-03-10 00:00 warfarin [facility] [place] 2023-03-12 00:00 warfarin [facility] [place] 2023-03-13 00:00 warfarin [facility] [place] 2023-03-15 00:00 warfarin [facility] [place] 2023-01-20 00:00 citalopram [facility] [place] 2023-01-21 00:00 citalopram [facility] [place] 2023-01-23 00:00 citalopram [facility] [place] 2023-02-10 00:00 citalopram [facility] [place] 2023-02-12 00:00 citalopram [facility] [place] 2023-02-13 00:00 citalopram [facility] [place] 2023-03-10 00:00 citalopram [facility] [place] 2023-03-12 00:00 citalopram [facility] [place] 2023-03-13 00:00 citalopram [facility] [place] 2023-03-15 00:00 citalopram [facility] [place] 2023-01-20 00:00 citalopram [facility] [place] 2023-01-21 00:00 citalopram [facility] [place] 2023-01-23 00:00 citalopram [facility] [place] 2023-02-10 00:00 citalopram [facility] [place] 2023-02-12 00:00 citalopram [facility] [place] 2023-02-13 00:00 citalopram [facility] [place] 2023-03-10 00:00 citalopram [facility] [place] 2023-03-12 00:00 citalopram [facility] [place] 2023-03-13 00:00 citalopram [facility] [place] 2023-03-15 00:00 citalopram [facility] [place] 2023-01-20 00:00 metoprolol tartrate [facility] [place] 2023-01-21 00:00 metoprolol tartrate [facility] [place] 2023-01-23 00:00 metoprolol tartrate [facility] [place] 2023-02-10 00:00 metoprolol tartrate [facility] [place] 2023-02-12 00:00 metoprolol tartrate [facility] [place] 2023-02-13 00:00 metoprolol tartrate [facility] [place] 2023-03-10 00:00 metoprolol tartrate [facility] [place] 2023-03-12 00:00 metoprolol tartrate [facility] [place] 2023-03-13 00:00 metoprolol tartrate [facility] [place] 2023-03-15 00:00 metoprolol tartrate [facility] [place] 2023-01-20 00:00 citalopram [facility] [place] 2023-01-21 00:00 citalopram [facility] [place] 2023-01-23 00:00 citalopram [facility] [place] 2023-02-10 00:00 citalopram [facility] [place] 2023-02-12 00:00 citalopram [facility] [place] 2023-02-13 00:00 citalopram [facility] [place] 2023-03-10 00:00 citalopram [facility] [place] 2023-03-12 00:00 citalopram [facility] [place] 2023-03-13 00:00 citalopram [facility] [place] 2023-03-15 00:00 citalopram [facility] [place] 2023-01-20 00:00 aspirin [facility] [place] 2023-01-21 00:00 aspirin [facility] [place] 2023-01-23 00:00 aspirin [facility] [place] 2023-02-10 00:00 aspirin [facility] [place] 2023-02-12 00:00 aspirin [facility] [place] 2023-02-13 00:00 aspirin [facility] [place] 2023-03-10 00:00 aspirin [facility] [place] 2023-03-12 00:00 aspirin [facility] [place] 2023-03-13 00:00 aspirin [facility] [place] 2023-03-15 00:00 aspirin [facility] [place] 2023-03-14 00:00 diltiazem hcl [facility] [place] 2023-03-15 00:00 diltiazem hcl [facility] [place] 2023-03-14 00:00 diltiazem hcl [facility] [place] 2023-03-15 00:00 diltiazem hcl [facility] [place] 2023-03-14 00:00 metoprolol succinate [facility] [place] 2023-03-15 00:00 metoprolol succinate [facility] [place] 2023-01-20 00:00 multivitamin [facility] [place] 2023-01-21 00:00 multivitamin [facility] [place] 2023-01-23 00:00 multivitamin [facility] [place] 2023-02-10 00:00 multivitamin [facility] [place] 2023-02-12 00:00 multivitamin [facility] [place] 2023-02-13 00:00 multivitamin [facility] [place] 2023-03-10 00:00 multivitamin [facility] [place] 2023-03-12 00:00 multivitamin [facility] [place] 2023-03-13 00:00 multivitamin [facility] [place] 2023-03-15 00:00 multivitamin [facility] [place] 2023-01-20 00:00 metoprolol tartrate [facility] [place] 2023-01-21 00:00 metoprolol tartrate [facility] [place] 2023-01-23 00:00 metoprolol tartrate [facility] [place] 2023-02-10 00:00 metoprolol tartrate [facility] [place] 2023-02-12 00:00 metoprolol tartrate [facility] [place] 2023-02-13 00:00 metoprolol tartrate [facility] [place] 2023-03-10 00:00 metoprolol tartrate [facility] [place] 2023-03-12 00:00 metoprolol tartrate [facility] [place] 2023-03-13 00:00 metoprolol tartrate [facility] [place] 2023-03-15 00:00 metoprolol tartrate [facility] [place] 2023-01-20 00:00 multivitamin [facility] [place] 2023-01-21 00:00 multivitamin [facility] [place] 2023-01-23 00:00 multivitamin [facility] [place] 2023-02-10 00:00 multivitamin [facility] [place] 2023-02-12 00:00 multivitamin [facility] [place] 2023-02-13 00:00 multivitamin [facility] [place] 2023-03-10 00:00 multivitamin [facility] [place] 2023-03-12 00:00 multivitamin [facility] [place] 2023-03-13 00:00 multivitamin [facility] [place] 2023-03-15 00:00 multivitamin [facility] [place] 2023-01-20 00:00 aspirin [facility] [place] 2023-01-21 00:00 aspirin [facility] [place] 2023-01-23 00:00 aspirin [facility] [place] 2023-02-10 00:00 aspirin [facility] [place] 2023-02-12 00:00 aspirin [facility] [place] 2023-02-13 00:00 aspirin [facility] [place] 2023-03-10 00:00 aspirin [facility] [place] 2023-03-12 00:00 aspirin [facility] [place] 2023-03-13 00:00 aspirin [facility] [place] 2023-03-15 00:00 aspirin [facility] [place] 2023-03-14 00:00 diltiazem hcl [facility] [place] 2023-03-15 00:00 diltiazem hcl [facility] [place] 2023-01-20 00:00 warfarin [facility] [place] 2023-01-21 00:00 warfarin [facility] [place] 2023-01-23 00:00 warfarin [facility] [place] 2023-02-10 00:00 warfarin [facility] [place] 2023-02-12 00:00 warfarin [facility] [place] 2023-02-13 00:00 warfarin [facility] [place] 2023-03-10 00:00 warfarin [facility] [place] 2023-03-12 00:00 warfarin [facility] [place] 2023-03-13 00:00 warfarin [facility] [place] 2023-03-15 00:00 warfarin [facility] [place] 2023-01-20 00:00 warfarin [facility] [place] 2023-01-21 00:00 warfarin [facility] [place] 2023-01-23 00:00 warfarin [facility] [place] 2023-02-10 00:00 warfarin [facility] [place] 2023-02-12 00:00 warfarin [facility] [place] 2023-02-13 00:00 warfarin [facility] [place] 2023-03-10 00:00 warfarin [facility] [place] 2023-03-12 00:00 warfarin [facility] [place] 2023-03-13 00:00 warfarin [facility] [place] 2023-03-15 00:00 warfarin [facility] [place] 2023-03-14 00:00 metoprolol succinate [facility] [place] 2023-03-15 00:00 metoprolol succinate [facility] [place] 2023-01-20 00:00 metoprolol tartrate [facility] [place] 2023-01-21 00:00 metoprolol tartrate [facility] [place] 2023-01-23 00:00 metoprolol tartrate [facility] [place] 2023-02-10 00:00 metoprolol tartrate [facility] [place] 2023-02-12 00:00 metoprolol tartrate [facility] [place] 2023-02-13 00:00 metoprolol tartrate [facility] [place] 2023-03-10 00:00 metoprolol tartrate [facility] [place] 2023-03-12 00:00 metoprolol tartrate [facility] [place] 2023-03-13 00:00 metoprolol tartrate [facility] [place] 2023-03-15 00:00 metoprolol tartrate [facility] [place] Problems date description facility 2023-01-20 00:00 Osteoarthritis of hip [facility] [place] 2023-01-20 00:00 Other and unspecified hyperlipi [facility] [place] 2023-01-20 00:00 Morbid obesity [facility] [place] 2023-01-20 00:00 Benign essential hypertension [facility] [place] 2023-01-20 00:00 Hyperlipidemia [facility] [place] 2023-01-20 00:00 Osteoarthrosis, unsp ecified whether generalized or localized, involving pelvic region and thigh [facility] [place] 2023-01-20 00:00 Morbid (severe) obes ity due to excess calories [facility] [place] 2023-01-20 00:00 Hyperlipidemia, unspecified [facility] [place] 2023-01-20 00:00 Essential (primary) hypertensio n [facility] [place] 2023-01-20 00:00 Unilateral primary o steoarthritis, left hip [facility] [place] 2023-01-21 00:00 Osteoarthritis of hip [facility] [place] 2023-01-21 00:00 Other and unspecified hyperlipi [facility] [place] 2023-01-21 00:00 Morbid obesity [facility] [place] 2023-01-21 00:00 Benign essential hypertension [facility] [place] 2023-01-21 00:00 Hyperlipidemia [facility] [place] 2023-01-21 00:00 Osteoarthrosis, unsp ecified whether generalized or localized, involving pelvic region and thigh [facility] [place] 2023-01-21 00:00 Morbid (severe) obes ity due to excess calories [facility] [place] 2023-01-21 00:00 Hyperlipidemia, unspecified [facility] [place] 2023-01-21 00:00 Essential (primary) hypertensio n [facility] [place] 2023-01-21 00:00 Unilateral primary o steoarthritis, left hip [facility] [place] 2023-01-23 00:00 Osteoarthritis of hip [facility] [place] 2023-01-23 00:00 Other and unspecified hyperlipi [facility] [place] 2023-01-23 00:00 Morbid obesity [facility] [place] 2023-01-23 00:00 Benign essential hypertension [facility] [place] 2023-01-23 00:00 Hyperlipidemia [facility] [place] 2023-01-23 00:00 Osteoarthrosis, unsp ecified whether generalized or localized, involving pelvic region and thigh [facility] [place] 2023-01-23 00:00 Morbid (severe) obes ity due to excess calories [facility] [place] 2023-01-23 00:00 Hyperlipidemia, unspecified [facility] [place] 2023-01-23 00:00 Essential (primary) hypertensio n [facility] [place] 2023-01-23 00:00 Unilateral primary o steoarthritis, left hip [facility] [place] 2023-02-10 00:00 Osteoarthritis of hip [facility] [place] 2023-02-10 00:00 Other and unspecified hyperlipi [facility] [place] 2023-02-10 00:00 Morbid obesity [facility] [place] 2023-02-10 00:00 Benign essential hypertension [facility] [place] 2023-02-10 00:00 Hyperlipidemia [facility] [place] 2023-02-10 00:00 Osteoarthrosis, unsp ecified whether generalized or localized, involving pelvic region and thigh [facility] [place] 2023-02-10 00:00 Morbid (severe) obes ity due to excess calories [facility] [place] 2023-02-10 00:00 Hyperlipidemia, unspecified [facility] [place] 2023-02-10 00:00 Essential (primary) hypertensio n [facility] [place] 2023-02-10 00:00 Unilateral primary o steoarthritis, left hip [facility] [place] 2023-02-12 00:00 Osteoarthritis of hip [facility] [place] 2023-02-12 00:00 Other and unspecified hyperlipi [facility] [place] 2023-02-12 00:00 Morbid obesity [facility] [place] 2023-02-12 00:00 Benign essential hypertension [facility] [place] 2023-02-12 00:00 Hyperlipidemia [facility] [place] 2023-02-12 00:00 Osteoarthrosis, unsp ecified whether generalized or localized, involving pelvic region and thigh [facility] [place] 2023-02-12 00:00 Morbid (severe) obes ity due to excess calories [facility] [facility] 2023-02-12 00:00 Hyperlipidemia, unspecified [facility] [place] 2023-02-12 00:00 Essential (primary) hypertensio n [facility] [place] 2023-02-12 00:00 Unilateral primary o steoarthritis, left hip [facility] [place] 2023-02-13 00:00 Osteoarthritis of hip [facility] [place] 2023-02-13 00:00 Other and unspecified hyperlipi demia [facility] [place] 2023-02-13 00:00 Morbid obesity [facility] [place] 2023-02-13 00:00 Benign essential hypertension [facility] [place] 2023-02-13 00:00 Hyperlipidemia [facility] [place] 2023-02-13 00:00 Osteoarthrosis, unsp ecified whether generalized or localized, involving pelvic region and thigh [facility] [place] 2023-02-13 00:00 Morbid (severe) obes ity due to excess calories [facility] [place] 2023-02-13 00:00 Hyperlipidemia, unspecified [facility] [place] 2023-02-13 00:00 Essential (primary) hypertensio n [facility] [place] 2023-02-13 00:00 Unilateral primary o steoarthritis, left hip [facility] [place] 2023-03-10 00:00 Osteoarthritis of hip [facility] [place] 2023-03-10 00:00 Other and unspecified hyperlipi demia [facility] [place] 2023-03-10 00:00 Morbid obesity [facility] [place] 2023-03-10 00:00 Benign essential hypertension [facility] [place] 2023-03-10 00:00 Hyperlipidemia [facility] [place] 2023-03-10 00:00 Osteoarthrosis, unsp ecified whether generalized or localized, involving pelvic region and thigh [facility] [place] 2023-03-10 00:00 Morbid (severe) obes ity due to excess calories [facility] [place] 2023-03-10 00:00 Hyperlipidemia, unspecified [facility] [place] 2023-03-10 00:00 Essential (primary) hypertensio n [facility] [place] 2023-03-10 00:00 Unilateral primary o steoarthritis, left hip [facility] [place] 2023-03-12 00:00 Osteoarthritis of hip [facility] [place] 2023-03-12 00:00 Other and unspecified hyperlipi demia [facility] [place] 2023-03-12 00:00 Morbid obesity [facility] [place] 2023-03-12 00:00 Benign essential hypertension [facility] [place] 2023-03-12 00:00 Hyperlipidemia [facility] [place] 2023-03-12 00:00 Osteoarthrosis, unsp ecified whether generalized or localized, involving pelvic region and thigh [facility] [place] 2023-03-12 00:00 Morbid (severe) obes ity due to excess calories [facility] [place] 2023-03-12 00:00 Hyperlipidemia, unspecified [facility] [place] 2023-03-12 00:00 Essential (primary) hypertensio n [facility] [place] 2023-03-12 00:00 Unilateral primary o steoarthritis, left hip [facility] [place] 2023-03-13 00:00 Osteoarthritis of hip [facility] [place] 2023-03-13 00:00 Other and unspecified hyperlipi demia [facility] [place] 2023-03-13 00:00 Morbid obesity [facility] [place] 2023-03-13 00:00 Benign essential hypertension [facility] [place] 2023-03-13 00:00 Hyperlipidemia [facility] [place] 2023-03-13 00:00 Osteoarthrosis, unsp ecified whether generalized or localized, involving pelvic region and thigh [facility] [place] 2023-03-13 00:00 Morbid (severe) obes ity due to excess calories [facility] [place] 2023-03-13 00:00 Hyperlipidemia, unspecified [facility] [place] 2023-03-13 00:00 Essential (primary) hypertensio n [facility] [place] 2023-03-13 00:00 Unilateral primary o steoarthritis, left hip [facility] [place] 2023-03-14 00:00 Thyroid disorder screening [facility] [place] 2023-03-14 00:00 Long-term drug therapy [facility] [place] 2023-03-14 00:00 Hyperlipidemia screening [facility] [place] 2023-03-14 00:00 Long-term (current) drug [facility] [place] 2023-03-14 00:00 Screening for thyroid disorders [facility] [place] 2023-03-14 00:00 Screening for lipoid disorders [facility] [place] 2023-03-14 00:00 Encounter for screen ing for lipoid disorders [facility] [place] 2023-03-14 00:00 Encounter for screen ing for other suspected endocrine disorder [facility] [place] 2023-03-14 00:00 Other intermediate (cur rent) drug therapy [facility] [place] 2023-03-15 00:00 Osteoarthritis of hip [facility] [place] 2023-03-15 00:00 Other and unspecified hyperlipi demia [facility] [place] 2023-03-15 00:00 Morbid obesity [facility] [place] 2023-03-15 00:00 Benign essential hypertension [facility] [place] 2023-03-15 00:00 Hyperlipidemia [facility] [place] 2023-03-15 00:00 Osteoarthrosis, unsp ecified whether generalized or localized, involving pelvic region and thigh [facility] [place] 2023-03-15 00:00 Morbid (severe) obes ity due to excess calories [facility] [place] 2023-03-15 00:00 Hyperlipidemia, unspecified [facility] [place] 2023-03-15 00:00 Essential (primary) hypertensio n [facility] [place] 2023-03-15 00:00 Unilateral primary o steoarthritis, left hip [facility] [place] Procedures date description facility 2023-03-14 00:00 Visit Code Hold [facility] [place] 2023-01-20 00:00 ANTICOAG MGMT PT [facility] [place] 2023-02-10 00:00 ANTICOAG MGMT PT [facility] [place] 2023-03-10 00:00 ANTICOAG MGMT PT [facility] [place] Results/Labs test date author facility value unit interpretation Result panel 1 (unknown) (no date) (unknown) [facility] [place] (no value) (units unknown) (unknown) Result panel 2 (unknown) (no date) (unknown) [facility] [place] (no value) (units unknown) (unknown) Result panel 3 (unknown) (no date) (unknown) [facility] [place] (no value) (units unknown) (unknown) Result panel 4 (unknown) (no date) (unknown) [facility] [place] (no value) (units unknown) (unknown) Result panel 5 (unknown) (no date) (unknown) [facility] [place] (no value) (units unknown) (unknown) Result panel 6 (unknown) (no date) (unknown) [facility] [place] (no value) (units unknown) (unknown) Result panel 7 (unknown) (no date) (unknown) [facility] [place] (no value) (units unknown) (unknown) Result panel 8 (unknown) (no date) (unknown) [facility] [place] (no value) (units unknown) (unknown) Result panel 9 (unknown) (no date) (unknown) [facility] [place] (no value) (units unknown) (unknown) Social History date description facility 2023-03-14 00:00 Never smoker [facility] [place] Vital Signs date measurement value units 2023-03-14 00:00 BMI 33.40 kg/m2 2023-03-14 00:00 BP_diastolic 84 mmHg 2023-03-14 00:00 BP_systolic 157 mmHg 2023-03-14 00:00 heart_rate 78 /min 2023-03-14 00:00 height_metric 167.64 cm 2023-03-14 00:00 height_standard 66 in 2023-03-14 00:00 respiration_rate 16 /min 2023-03-14 00:00 temperature_metric 36.61 C 2023-03-14 00:00 temperature_standard 97.9 F 2023-03-14 00:00 weight_metric 93.53 kg 2023-03-14 00:00 weight_standard 206.2 lb
--- NOTE | 2023-04-13 20:05 | CT Report ---
PROCEDURE: HEAD WO INDICATIONS: syncope, head/neck injury TECHNIQUE: Noncontrast 4.5 mm thick angled axial sections acquired from the foramen magnum to the vertex. For r adiation dose reduction, the following was used: automated exposure control, adjustment of mA and/or kV according to patient size. COMPARISON: CT head 05/09/2022. FINDINGS: Image quality: Excellent. CSF spaces: Basal cisterns are patent. No extra-axial fluid collections. Ventricles are normal in size and shape. Brain: No intracranial hemorrhage, mass, or mass effect. Nunez-white matter interface appears preser rito. Skull and face: Calvarium and visualized facial bones are intact, without suspicious lesions. Sinuses: Visualized sinuses and mastoids are clear. IMPRESSION: 1. No acute intracranial abnormality. Reviewed by: Hilton Hill MD on 04/13/2023 8:04 PM PDT Approved by: Hilton Hill MD on 04/13/2023 8:04 PM PDT Station ID: [id number]
--- NOTE | 2023-04-13 20:07 | CT Report ---
PROCEDURE: CERVICAL SPINE WO INDICATIONS: syncope, head/neck injury TECHNIQUE: Noncontrast 3 mm thick sections acquired from the skull base to the T4 level. Sagittal and coronal r eformats were then constructed. For radiation dose reduction, the following was used: automated exp osure control, adjustment of mA and/or kV according to patient size. COMPARISON: None. FINDINGS: Image quality: Excellent. Bones: No fractures or subluxation. There is multilevel degenerative disc disease and facet arthropa thy. Visualized superior ribs are intact. Soft tissues: Prevertebral soft tissues are normal in thickness. No paravertebral hematomas. No ap ical pneumothoraces. IMPRESSION: 1. No fracture or subluxation. Reviewed by: Hilton Hill MD on 04/13/2023 8:05 PM PDT Approved by: Hilton Hill MD on 04/13/2023 8:05 PM PDT Station ID: [id number]
--- NOTE | 2023-04-13 20:08 | XRAY Report ---
PROCEDURE: Chest 1 View X-Ray INDICATIONS: Chest Pain TECHNIQUE: One view of the chest was acquired. COMPARISON: Chest x-ray 12/04/2022. FINDINGS: Surgical changes and devices: None. Lungs and pleura: No pleural effusions or pneumothorax. No acute consolidation. Mediastinum: Mediastinal contours appear normal. Heart size is normal. Bones and chest wall: No suspicious bony lesions. Overlying soft tissues appear unremarkable. IMPRESSION: No acute cardiopulmonary disease. Reviewed by: Hilton Hill MD on 04/13/2023 8:07 PM PDT Approved by: Hilton Hill MD on 04/13/2023 8:07 PM PDT Station ID: [id number]
[2023-04-13 20:32] LABS: BASOPHILS # (AUTO) 0.1 10^3/uL (0.0-0.1); BASOPHILS % (AUTO) 0.7 %; EOSINOPHILS # (AUTO) 0.1 10^3/uL (0.0-0.7); EOSINOPHILS % (AUTO) 1.3 %; HGB - HEMOGLOBIN 13.7 g/dL (12.0-16.0); LYMPHOCYTES # (AUTO) 0.8 10^3/uL (1.5-3.5); LYMPHOCYTES % (AUTO) 9.5 %; MEAN CORPUSCULAR HEMOGLOBIN 29.2 pg (27.0-31.0); MEAN CORPUSCULAR HGB CONC 32.6 g/dL (32.0-36.0); MEAN CORPUSCULAR VOLUME 89.6 fL (81.0-99.0); MEAN PLATELET VOLUME 9.9 fL (7.9-10.8); MONOCYTES # (AUTO) 0.6 10^3/uL (0.0-1.0); MONOCYTES % (AUTO) 7.4 %; NEUTROPHILS # (AUTO) 6.6 10^3/uL (1.5-6.6); NEUTROPHILS % (AUTO) 80.6 %; PLT - PLATELET COUNT 245 10^3/uL (130-450); RED BLOOD COUNT 4.69 10^6/uL (4.20-5.40); RED CELL DISTRIBUTION WIDTH 14.3 % (12.0-15.0); WHITE BLOOD COUNT 8.2 x10^3/uL (4.8-10.8)
[2023-04-13 20:39] LABS: INR 2.4 (0.8-1.2); PT - PROTHROMBIN TIME 25.1 secs (9.9-12.6)
[2023-04-13 20:52] LABS: ALBUMIN 3.9 g/dL (3.2-5.5); ALBUMIN/GLOBULIN RATIO 1.1 (1.0-2.2); BILIRUBIN,TOTAL 0.6 mg/dL (0.2-1.0); CALCIUM 8.9 mg/dL (8.5-10.3); CREATININE 0.7 mg/dL (0.4-1.0); MAGNESIUM 1.8 mg/dL (1.7-2.8); PHOSPHORUS 2.2 mg/dL (2.5-4.6); POTASSIUM 3.7 mmol/L (3.5-5.0); TOTAL PROTEIN 7.4 g/dL (6.7-8.2)
[2023-04-13 21:22] VITALS: BP 153/74
== END 2023-04-13 21:22 | disposition home or self-care (01) ==
LOC: EDUNIT# → ED 19:14
DX: S00.03XA Contusion of scalp, initial encounter (principal); W19.XXXA Unspecified fall, initial encounter; I10 Essential (primary) hypertension; I48.91 Unspecified atrial fibrillation; Z79.01 Long term (current) use of anticoagulants
CPT/HCPCS: 36415; 80053; 83690; 83735; 84100; 84484; 85025; 85610; 93005; 99283; 99284

== ENCOUNTER 2023-04-20 08:58 | Outpatient (CLI) | payer MEDICARE, OTHER ==
[2023-04-20 14:27] LABS: BASOPHILS # (AUTO) 0.1 10^3/uL (0.0-0.1); BASOPHILS % (AUTO) 0.6 %; EOSINOPHILS # (AUTO) 0.2 10^3/uL (0.0-0.7); EOSINOPHILS % (AUTO) 2.5 %; LYMPHOCYTES % (AUTO) 10.8 %; MEAN CORPUSCULAR HEMOGLOBIN 29.3 pg (27.0-31.0); MEAN CORPUSCULAR HGB CONC 31.7 g/dL (32.0-36.0); MEAN CORPUSCULAR VOLUME 92.3 fL (81.0-99.0); MEAN PLATELET VOLUME 10.5 fL (7.9-10.8); MONOCYTES # (AUTO) 0.7 10^3/uL (0.0-1.0); MONOCYTES % (AUTO) 7.1 %; NEUTROPHILS # (AUTO) 7.4 10^3/uL (1.5-6.6); NEUTROPHILS % (AUTO) 78.8 %; PLT - PLATELET COUNT 243 10^3/uL (130-450); RED BLOOD COUNT 4.44 10^6/uL (4.20-5.40); RED CELL DISTRIBUTION WIDTH 14.4 % (12.0-15.0); WHITE BLOOD COUNT 9.4 x10^3/uL (4.8-10.8)
[2023-04-20 14:41] LABS: ALBUMIN 3.7 g/dL (3.2-5.5); ALBUMIN/GLOBULIN RATIO 1.1 (1.0-2.2); ALKALINE PHOSPHATASE 81 IU/L (42-121); ALT ALANINE AMINOTRANSFERASE 16 IU/L (10-60); AST ASPARTATE AMINOTRANSFERASE 22 IU/L (10-42); BUN - BLOOD UREA NITROGEN 13 mg/dL (6-20); CALCIUM 8.8 mg/dL (8.5-10.3); CARBON DIOXIDE - CO2 27 mmol/L (21-32); CHLORIDE 107 mmol/L (101-111); CHOL/HDL RATIO 2.8 (<4.4); CHOLESTEROL 231 mg/dL; CREATININE 0.7 mg/dL (0.4-1.0); GFR - MDRD 82 (>89); GLUCOSE 92 mg/dL (70-100); HDL CHOLESTEROL 82 mg/dL; LDL CHOLESTEROL,CALCULATED 137 mg/dL; LDL/HDL RATIO 1.7 (<4.4); POTASSIUM 3.8 mmol/L (3.5-5.0); SODIUM 140 mmol/L (135-145); TOTAL PROTEIN 7.1 g/dL (6.7-8.2); TRIGLYCERIDES 60 mg/dL; VLDL CHOLESTEROL 12 mg/dL
[2023-04-20 15:03] LABS: THYROID STIMULATING HORMONE 2.15 uIU/mL (0.34-5.60)
== END 2023-04-20 08:59 | disposition home or self-care (01) ==
LOC: LAB.S 08:58
PROVIDERS: ATTEND Internal Medicine
DX: R00.0 Tachycardia, unspecified (principal); Z79.899 Other long term (current) drug therapy; Z13.220 Encounter for screening for lipoid disorders; Z13.29 Encounter for screening for other suspected endocrine disorder
CPT/HCPCS: 36415; 80053; 80061; 83721; 84443; 85025

== ENCOUNTER 2023-06-01 09:31 | Outpatient (CLI) | payer MEDICARE, OTHER | END 2023-06-01 09:32 | disposition home or self-care (01) | LOC: LAB.S 09:31 | PROVIDERS: ATTEND Registered Nurse | DX: Z79.01 Long term (current) use of anticoagulants (principal); I48.91 Unspecified atrial fibrillation | CPT/HCPCS: 36416; 85610 ==

== ENCOUNTER 2023-08-10 11:23 | Outpatient (CLI) | payer MEDICARE, OTHER ==
[2023-08-10 14:44] LABS: BASOPHILS # (AUTO) 0.1 10^3/uL (0.0-0.1); EOSINOPHILS # (AUTO) 0.2 10^3/uL (0.0-0.7); EOSINOPHILS % (AUTO) 2.1 %; HGB - HEMOGLOBIN 13.4 g/dL (12.0-16.0); LYMPHOCYTES # (AUTO) 1.2 10^3/uL (1.5-3.5); MEAN CORPUSCULAR HEMOGLOBIN 30.2 pg (27.0-31.0); MEAN CORPUSCULAR HGB CONC 31.9 g/dL (32.0-36.0); MEAN CORPUSCULAR VOLUME 94.6 fL (81.0-99.0); MEAN PLATELET VOLUME 10.5 fL (7.9-10.8); MONOCYTES # (AUTO) 0.7 10^3/uL (0.0-1.0); MONOCYTES % (AUTO) 7.9 %; NEUTROPHILS # (AUTO) 6.2 10^3/uL (1.5-6.6); NEUTROPHILS % (AUTO) 74.6 %; PLT - PLATELET COUNT 238 10^3/uL (130-450); RED BLOOD COUNT 4.44 10^6/uL (4.20-5.40); RED CELL DISTRIBUTION WIDTH 13.7 % (12.0-15.0); WHITE BLOOD COUNT 8.2 x10^3/uL (4.8-10.8)
[2023-08-10 15:34] LABS: CALCIUM 9.2 mg/dL (8.5-10.3); CREATININE 0.7 mg/dL (0.6-1.3)
== END 2023-08-10 11:24 | disposition home or self-care (01) ==
LOC: LAB.S 11:23
PROVIDERS: ATTEND Registered Nurse
DX: Z79.01 Long term (current) use of anticoagulants (principal); I48.0 Paroxysmal atrial fibrillation
CPT/HCPCS: 36415; 80048; 85025; 85610